=== PATIENT | female | born 1990 | race Caucasian/White ===

== ENCOUNTER 2019-06-21 11:30 | Emergency (ER) | payer BC, OTHER ==
[2019-06-21] MEDS ORDERED: Ondansetron 4 MG/2 ML SDV IVPUSH ONE (11:55)
[2019-06-21] MEDS ORDERED: HYDROmorphone 2 MG/ML Syringe IVPUSH ONE (11:55)
[2019-06-21] MEDS ORDERED: Sodium Chloride 0.9% 1,000 ML IV ONE (11:55)
[2019-06-21 12:38] LABS: BLOOD UREA NITROGEN,BUN 13 mg/dL (7.0-18.0); CARBON DIOXIDE,CO2 27.2 mmol/L (21.0-32.0); CHLORIDE,CL 101 mmol/L (98-107); GLUCOSE RANDOM 93 mg/dL (74-106); LIPASE 114 U/L (73-393); POTASSIUM,K 3.7 mmol/L (3.5-5.1); SODIUM,NA 137 mmol/L (136-145)
[2019-06-21] MEDS ORDERED: Iopamidol 755 MG/ML 200 ML Multipack Bottle IVPUSH STA (13:03)
--- NOTE | 2019-06-21 13:21 | CR ---
Indication: Cough. Technique: PA view of the chest. Comparison: None Findings: The heart is normal in size. The lungs are clear. No infiltrate, pleural effusion, or pneumothorax is identified. Impression: No acute cardiopulmonary process Dictated by Yvonne Meadows MD @ Jun 21 2019 1:19PM Signed by Dr. Yvonne Meadows @ Jun 21 2019 1:20PM
--- NOTE | 2019-06-21 13:42 | CT ---
INDICATION: Right lower quadrant pain. Technique contrast and CT on pelvis 100 mL Isovue-[id number]. COMPARISON: No comparison studies are available Findings: Heart size is normal. No pericardial effusion. No pleural effusion. Lung bases are clear. Acute the liver spleen, pancreas. Cholelithiasis. No abdominal aortic aneurysm. Symmetric enhancement of both kidneys. There is no hydronephrosis. Abundant stool in the colon. No bowel obstruction. The appendix is not identified however there is no inflammatory change. There is no pericecal inflammatory change. Fat containing ventral hernia. No suspicious bony lesions. IMPRESSION: 1. No acute findings in the abdomen or pelvis. Appendix not identified however no pericecal inflammatory change is visualized. Please note that all CT scans at this facility use dose modulation, iterative reconstruction, and/or weight-based dosing when appropriate to reduce radiation dose to as low as reasonably achievable. Dictated by Annamaria He MD @ Jun 21 2019 1:15PM Signed by Dr. Annamaria He @ Jun 21 2019 1:41PM
--- NOTE | 2019-06-21 13:50 | EDM.PDOC ---
ED [facility] GENERAL MEDICAL PROBLEM - General Chief Complaint: Abdominal Pain Stated Complaint: ABDOMINAL PAIN Time Seen by Provider: 06/21/19 11:49 - History of Present Illness INITIAL COMMENTS - FREE TEXT/NARRATIVE: HPI 29-year-old female with history of appendectomy and pelvic cyst presents for evaluation of right lower quadrant nonradiating abdominal discomfort of approximately half day duration that is occurring in the setting of half day of frequent loose watery stools. Patient also endorses 3 days of mild sore throat. No identifiable provoking or relieving factors. Patient is currently on menses. No atypical discharge. LMP ~4 weeks ago. * Character: non-bloody, no mucus, no pus. * Frequency: 5 pack/day. * Duration: one day. * Denies: recent antibiotics, fresh or salt water exposure, recent hospitalization, travel, drinking untreated water, history of c. difficile. * Fever/chills/rigors: denies. * HIV or immunocompromise: denies. M/S/F/SocHx notable for: please see HPI; remainder reviewed with patient and in chart. ROS: Negative constitutional, eye, cardiovascular, pulmonary, GI, , MSK, skin , neurologic, psychiatric, endocrine unless noted in the HPI. Exam HR 98, RR 16, BP 121/84, T 36.4F, SaO2 96% on room air. Gen: Pleasant, non-toxic appearing, resting comfortably. HEENT: NC, AT, PEERL, EOMI, neck supple with full range of movement. Oropharynx visually normal. No palpable lymphadenopathy. Resp: Clear to auscultation bilaterally, normal work of breathing, no accessory muscle usage. Card: Regular rate and rhythm with no murmurs, rubs, or gallops, extremities warm and well perfused. GI: mild diffuse tenderness palpation without rebound or guarding. : No suprapubic tenderness to palpation. MSK: No visible deformities, strength and tone without visually appreciable deficit. Skin: Normal color with no visible lesions. Neuro: alert and oriented 3, no facial asymmetry, vision and hearing WNL. Psych: unusual mood and affect Labs / Imaging (pertinent): WBC 4.66, HB 13.5, sodium 137, potassium 3.7, GGT 177, AST 149, ALT 351, alkaline phosphatase 225, lipase 114. HCG negative. Negative nitrate, negative leukocyte esterase, large occult blood, few bacteria , few epithelial cells. CXR: no acute cardiopulmonary process. CT Abd/Pelvis: no acute findings in the abdomen or pelvis. Appendix not identified however, no pericecal inflammatory change is visualized. Influenza B positive. MDM Previous chart, nursing note, and vitals reviewed. A: 29-year-old female with history of appendectomy and pelvic cyst presents for evaluation of right lower quadrant nonradiating abdominal discomfort of approximately half day duration that is occurring in the setting of half day of frequent loose watery stools. DDx: viral enteritis, viral gastroenteritis, bacterial gastroenteritis, food poisoning, C. Difficile, dehydration, electrolyte abnormalities, septicemia/ bacteremia, DKA, acute appendicitis, inflammatory (Crohns vs ulcerative colitis ), influenza. Evaluation: patient with positive influenza test, no features on history, exam, imaging studies, or labs suggestive of decompensation, superinfection, or sepsis. Imaging of the abdomen obtained due to the history of cyst as well as patient endorsing moderate discomfort on examination. This was unremarkable, given the above evaluation the patient symptoms are believed to be secondary to her influenza be infection. Patient was discharged with home care instructions and return to care precautions. Impression: influenza. Right Lower Abdominal Pain Score (Numeric/FACES): 10 - Related Data Allergies Allergy/AdvReac Type Severity Reaction Status Date / Time No Known Allergies Allergy Verified 06/21/19 11:37 Home Meds: Home Meds Acetaminophen [Tylenol Extra Strength] 325 mg PO Q6H PRN 03/16/15 [History] Sertraline HCl 25 mg PO DAILY 09/16/18 [History] busPIRone [Buspar] 15 mg PO DAILY 09/16/18 [History] Past Medical History - Past Health History Medical/Surgical History: Denies Medical/Surgical History HEENT History: Reports: None Cardiovascular History: Reports: Other (See Below) Other Cardiovascular History: preeclampsia Respiratory History: Reports: Asthma Gastrointestinal History: Reports: None Genitourinary History: Reports: None ADMITTANCE ATTENDANT History: Reports: Other ADMITTANCE ATTENDANT History: First baby born at 29 weeks gestation due to patient having severe preeclampsia Musculoskeletal History: Reports: None Neurological History: Reports: None Psychiatric History: Reports: Anxiety, Depression Endocrine/Metabolic History: Reports: None Hematologic History: Reports: None Immunologic History: Reports: None Oncologic (Cancer) History: Reports: None Dermatologic History: Reports: None - Infectious Disease History Infectious Disease History: Reports: Chicken Pox - Past Surgical History Head Surgeries/Procedures: Reports: None GI Surgical History: Reports: Appendectomy Female Surgical History: Reports: Section Social & Family History - Family History Family Medical History: Noncontributory - Tobacco Use Smoking Status *Q: Never Smoker Second Hand Smoke Exposure: No - Caffeine Use Caffeine Use: Reports: Coffee - Recreational Drug Use Recreational Drug Use: No ED ROS GENERAL - Review of Systems Review Of Systems: See Below ED EXAM, GENERAL - Physical Exam Exam: See Below Course - Vital Signs Last Recorded V/S: Last Vital Signs Temp 36.4 C 06/21/19 11:38 Pulse 71 06/21/19 13:10 Resp 16 06/21/19 11:38 BP 99/69 06/21/19 13:10 Pulse Ox 99 06/21/19 13:10 - Orders/Labs/Meds Labs: Laboratory Tests 06/21/19 06/21/19 06/21/19 Range/Units 11:55 11:55 11:55 WBC 4.66 (4.0-11.0) K/uL RBC 4.53 (4.30-5.90) M/uL Hgb 13.5 (12.0-16.0) g/dL Hct 40.9 (36.0-46.0) % MCV 90.3 (80.0-98.0) fL MCH 29.8 (27.0-32.0) pg MCHC 33.0 (31.0-37.0) g/dL RDW Std Deviation 42.9 (28.0-62.0) fl RDW Coeff of Carlitos 13 (11.0-15.0) % Plt Count 246 (150-400) K/uL MPV 10.10 (7.40-12.00) fL Neut % (Auto) 55.2 (48.0-80.0) % Lymph % (Auto) 31.1 (16.0-40.0) % Douglas % (Auto) 13.3 (0.0-15.0) % Eos % (Auto) 0.2 (0.0-7.0) % Baso % (Auto) 0.2 (0.0-1.5) % Neut # (Auto) 2.6 (1.4-5.7) K/uL Lymph # (Auto) 1.5 (0.6-2.4) K/uL Douglas # (Auto) 0.6 (0.0-0.8) K/uL Eos # (Auto) 0.0 (0.0-0.7) K/uL Baso # (Auto) 0.0 (0.0-0.1) K/uL Nucleated RBC % 0.0 /100WBC Nucleated RBCs # 0 K/uL Sodium (136-145) mmol/L Potassium (3.5-5.1) mmol/L Chloride (98-107) mmol/L Carbon Dioxide (21.0-32.0) mmol/L BUN (7.0-18.0) mg/dL Creatinine (0.6-1.0) mg/dL Est Cr Clr Drug Dosing mL/min Estimated GFR (MDRD) ml/min Glucose (74-106) mg/dL Calcium (8.5-10.1) mg/dL Total Bilirubin (0.2-1.0) mg/dL GGT (5-85) U/L AST (15-37) IU/L ALT (14-63) IU/L Alkaline Phosphatase (46-116) U/L Total Protein (6.4-8.2) g/dL Albumin (3.4-5.0) g/dL Globulin (2.6-4.0) g/dL Albumin/Globulin Ratio (0.9-1.6) Lipase (73-393) U/L Urine Color YELLOW Urine Appearance CLEAR Urine pH 6.0 (5.0-8.0) Ur Specific [place] >= 1.030 (1.001-1.035) Urine Protein NEGATIVE (NEGATIVE) mg/dL Urine Glucose (UA) NEGATIVE (NEGATIVE) mg/dL Urine Ketones NEGATIVE (NEGATIVE) mg/dL Urine Occult Blood LARGE H (NEGATIVE) Urine Nitrite NEGATIVE (NEGATIVE) Urine Bilirubin NEGATIVE (NEGATIVE) Urine Urobilinogen 0.2 (<2.0) EU/dL Ur Leukocyte Esterase NEGATIVE (NEGATIVE) Urine RBC 0-2 (0-2/HPF) Urine WBC 0-1 (0-5/HPF) Ur Epithelial Cells FEW (NONE-FEW) Urine Bacteria FEW (NEGATIVE) Urine HCG, Qual NEGATIVE (NEGATIVE) 06/21/19 Range/Units 11:55 WBC (4.0-11.0) K/uL RBC (4.30-5.90) M/uL Hgb (12.0-16.0) g/dL Hct (36.0-46.0) % MCV (80.0-98.0) fL MCH (27.0-32.0) pg MCHC (31.0-37.0) g/dL RDW Std Deviation (28.0-62.0) fl RDW Coeff of Carlitos (11.0-15.0) % Plt Count (150-400) K/uL MPV (7.40-12.00) fL Neut % (Auto) (48.0-80.0) % Lymph % (Auto) (16.0-40.0) % Douglas % (Auto) (0.0-15.0) % Eos % (Auto) (0.0-7.0) % Baso % (Auto) (0.0-1.5) % Neut # (Auto) (1.4-5.7) K/uL Lymph # (Auto) (0.6-2.4) K/uL Douglas # (Auto) (0.0-0.8) K/uL Eos # (Auto) (0.0-0.7) K/uL Baso # (Auto) (0.0-0.1) K/uL Nucleated RBC % /100WBC Nucleated RBCs # K/uL Sodium 137 (136-145) mmol/L Potassium 3.7 (3.5-5.1) mmol/L Chloride 101 (98-107) mmol/L Carbon Dioxide 27.2 (21.0-32.0) mmol/L BUN 13 (7.0-18.0) mg/dL Creatinine 0.7 (0.6-1.0) mg/dL Est Cr Clr Drug Dosing 112.01 mL/min Estimated GFR (MDRD) > 60.0 ml/min Glucose 93 (74-106) mg/dL Calcium 9.1 (8.5-10.1) mg/dL Total Bilirubin 1.0 (0.2-1.0) mg/dL GGT 177 H (5-85) U/L AST 149 H (15-37) IU/L ALT 351 H (14-63) IU/L Alkaline Phosphatase 225 H (46-116) U/L Total Protein 8.5 H (6.4-8.2) g/dL Albumin 3.9 (3.4-5.0) g/dL Globulin 4.6 H (2.6-4.0) g/dL Albumin/Globulin Ratio 0.9 (0.9-1.6) Lipase 114 (73-393) U/L Urine Color Urine Appearance Urine pH (5.0-8.0) Ur Specific [place] (1.001-1.035) Urine Protein (NEGATIVE) mg/dL Urine Glucose (UA) (NEGATIVE) mg/dL Urine Ketones (NEGATIVE) mg/dL Urine Occult Blood (NEGATIVE) Urine Nitrite (NEGATIVE) Urine Bilirubin (NEGATIVE) Urine Urobilinogen (<2.0) EU/dL Ur Leukocyte Esterase (NEGATIVE) Urine RBC (0-2/HPF) Urine WBC (0-5/HPF) Ur Epithelial Cells (NONE-FEW) Urine Bacteria (NEGATIVE) Urine HCG, Qual (NEGATIVE) Meds: Medications Discontinued Medications Generic Name Dose Route Start Last Admin Trade Name Freq PRN Reason Stop Dose Admin Hydromorphone HCl 0.5 mg 06/21/19 11:55 06/21/19 12:15 Dilaudid IVPUSH 06/21/19 11:56 0.5 mg ONETIME ONE Administration Sodium Chloride 1,000 mls @ 1,000 mls/hr 06/21/19 11:55 06/21/19 12:13 Normal Saline IV 06/21/19 12:54 1,000 mls/hr .Bolus ONE Administration Iopamidol 100 ml 06/21/19 13:03 06/21/19 13:04 Isovue Multipack-370 (76%) IVPUSH 06/21/19 13:04 100 ml ONETIME STA Administration Ondansetron HCl 4 mg 06/21/19 11:55 06/21/19 12:14 Zofran IVPUSH 06/21/19 11:56 4 mg ONETIME ONE Administration Departure - Departure Time of Disposition: 13:50 Disposition: Home, Self-Care 01 Clinical Impression: Influenza - Discharge Information Referrals: PCP,None [Primary Care Provider] - Additional Instructions: You were in seen in the [facility] Emergency Department for evaluation of abdominal pain, malaise, cough, and sore throat, you were found to have influenza B. You may take ibuprofen and acetaminophen instructed below for treatment of discomfort. Please read and follow all of the instructions below. Please follow up with your primary care physician as needed. When calling for follow-up care, please make the office aware that this follow-up is from your recent emergency room visit. If for any reason you are refused follow-up, please contact the [facility] Emergency Department at and asked to speak to the emergency department charge nurse. Your care today was limited to identifying and treating emergent medical problems only. Many people have subtle differences in their test results that require follow up with their outpatient physician(s) to correctly determine if this represents a normal variation or concerning abnormality with respect to your specific health. The care given to you today was limited to identifying and treating emergent medical problems - you need to request a copy of all of your medical records from today's visit and follow up with your outpatient physician(s) to review both today's visit and your overall health. If you have any new symptoms or if you are at all concerned about your health please return immediately to the emergency department. What is the flu? The flu is a viral infection that can cause fever, cough, body aches, and other symptoms. There are different forms of the flu, including the "seasonal" flu, the [id number] pandemic H1N1 flu (also called the "swine" flu), and the bird flu. All forms of the flu are caused by viruses. The medical term for the flu is "influenza." All forms of the flu can cause fevers, cough, headaches or body aches, and a sore throat or runny nose. Return to the emergency department if you have any of the following: * Have trouble breathing or are short of breath * Feel pain or pressure in your chest or belly * Get suddenly dizzy * Feel confused * Have severe vomiting * If you are breathing fast, have trouble breathing, are if you turn blue or purple * If you are excessively fatigued you have difficulty waking up * If you start getting better from the flu but then have worsening sickness, this could represent a secondary bacterial infection. * If you develop a fever, rash, neck stiffness, headaches, or bright lights bother you. * If you are otherwise concerned about your health * If you decide to go to a walk-in clinic or a hospital because of the flu, tell someone right away why you are there. The staff might ask you to wear a mask or to wait someplace where you are less likely to spread your infection. Home Care The primary treatment for influenza is supportive care. Please stay well- hydrated, rest, consume a light diet, and - if you do not have any allergies or other reasons not to - you may take ibuprofen and acetaminophen as directed on the bottle for symptomatic relief from your fevers and aches. Do not go to work or school until your fever has been gone for at least 24 hours, without a taking fever-reducing medicine, such as acetaminophen or ibuprofen. If you work in a healthcare setting taking care of patients, you might need to stay home longer if you are still coughing. Also, always cover your mouth and nose with the inside of your elbow when you cough or sneeze. You make take over the counter Acetaminophen (Tylenol) and Ibuprofen (Motrin or Aleve) as directed below for relief of pain. Take 600 mg of ibuprofen (three 200 mg tablets) with a glass of water every 6-8 hours as needed for pain or fever. Do not take if you have ulcers, GI bleeding, are , or are allergic to ibuprofen. Take 1,000 mg of acetaminophen (two 500 mg tablets) with a glass of water every 6-8 hours as needed for pain. Do not take if you are allergic to acetaminophen. If you have liver disease, please reduce your dose to a maximum of 2,000 mg per day. You can take these medications at the same time or on separate schedules. Do not take for more than 10 days. Do not take with alcohol or other acetaminophen containing medications. This medication may cause a mildly upset stomach, if so take it with a small snack. Stop taking it if you have persistent abdominal pain, heartburn, or any stomach pain. Do not take this medication if you have known ulcers. Please read the warnings at the end of this document regarding these medications. IBUPROFEN WARNING: This drug may infrequently cause serious (rarely fatal) bleeding from the stomach or intestines. Also, related drugs rarely have caused blood clots to form, resulting in heart attacks and strokes. This medication might also rarely cause similar problems. Talk to your doctor or pharmacist about the benefits and risks of treatment, as well as other possible medication choices. If you notice any of the following rare but very serious side effects, stop taking ibuprofen and seek immediate medical attention: black stools, persistent stomach/abdominal pain, vomit that looks like coffee grounds, chest pain, weakness on one side of the body, sudden vision changes, slurred speech. IBUPROFEN SIDE EFFECTS: Upset stomach, nausea, vomiting, heartburn, headache, diarrhea, constipation, drowsiness, and dizziness may occur. If any of these effects persist or worsen, notify your doctor or pharmacist promptly. If your doctor has directed you to use this medication, remember that he or she has judged that the benefit to you is greater than the risk of side effects. Many people using this medication do not have serious side effects. Tell your doctor immediately if any of these serious side effects occur: stomach pain, swelling of the hands or feet, sudden or unexplained weight gain, ringing in the ears ( tinnitus). Tell your doctor immediately if any of these unlikely but serious side effects occur: vision changes, rapid or pounding heartbeat, easy bruising or bleeding, difficult/painful swallowing. Tell your doctor immediately if any of these highly unlikely but very serious side effects occur: change in amount of urine, severe headache, very stiff neck, mental/mood changes, persistent sore throat or fever. This drug may rarely cause serious (possibly fatal) liver disease. If you notice any of the following highly unlikely but very serious side effects, stop taking ibuprofen and consult your doctor or pharmacist immediately: yellowing eyes and skin, dark urine, unusual/extreme tiredness. An allergic reaction to this drug is unlikely, but seek immediate medical attention if it occurs. Symptoms of an allergic reaction include: rash, itching/ swelling (especially of the face/tongue/throat), severe dizziness, trouble breathing. This is not a complete list of possible side effects. ACETAMINOPHEN SIDE EFFECTS: This drug usually has no side effects. If you do not have liver problems, the maximum dose of acetaminophen for adults is 4 grams per day (4000 milligrams). Taking more than the maximum daily amount may cause serious (possibly fatal) liver damage. Get medical help right away if you have any of the following symptoms of liver damage: persistent nausea/vomiting, extreme tiredness, stomach/abdominal pain, yellowing eyes/skin, dark urine. If you have liver problems, consult your doctor or pharmacist for a safe dosage of this medication. A very serious allergic reaction to this drug is rare. However , get medical help right away if you notice any symptoms of a serious allergic reaction, including: rash, itching/swelling (especially of the face/tongue/ throat), severe dizziness, trouble breathing. This is not a complete list of possible side effects. If you notice other effects not listed above, contact your doctor or pharmacist. DRUG INTERACTIONS: Your healthcare professionals (e.g., doctor or pharmacist) may already be aware of any possible drug interactions and may be monitoring you for it. Do not start, stop or change the dosage of any medicine before checking with them first. This drug should not be used with the following medications because very serious interactions may occur: cidofovir, ketorolac. If you are currently using any of these medications listed above, tell your doctor or pharmacist before starting ibuprofen. Before using this medication, tell your doctor or pharmacist of all prescription and nonprescription/herbal products you may use, especially of: anti-platelet drugs (e.g., cilostazol, clopidogrel), oral bisphosphonates (e.g., alendronate), other medications for arthritis (e.g., aspirin, methotrexate), "blood thinners" (e.g., enoxaparin, heparin, warfarin), corticosteroids (e.g., prednisone), cyclosporine, desmopressin, high blood pressure drugs (including JOSELITO inhibitors such as captopril, angiotensin II receptor antagonists such as losartan, and beta- blockers such as metoprolol), lithium, pemetrexed, "water pills" (diuretics such as furosemide, hydrochlorothiazide, triamterene). Check all prescription and nonprescription medicine labels carefully for other pain/fever drugs ( NSAIDs such as aspirin, celecoxib, naproxen). These drugs are similar to ibuprofen, so taking one of these drugs while also taking ibuprofen may increase your risk of side effects. Consult your doctor or pharmacist for more details. However, if your doctor has prescribed low doses of aspirin to prevent heart attack or stroke (usually at dosages of 81-325 milligrams a day), you should continue to take the aspirin. Daily use of ibuprofen may decrease aspirin 's ability to prevent heart attack/stroke. Talk to your doctor about using a different medication (e.g., acetaminophen) to treat pain/fever. If you must take ibuprofen, talk to your doctor about possibly taking immediate-release aspirin (not enteric-coated) while also taking the ibuprofen dose apart from your aspirin dose. Do not increase your daily dose of aspirin or change the way you take aspirin/other medications without your doctor's approval. This document does not contain all possible interactions. Therefore, before using this product, tell your doctor or pharmacist of all the products you use. Keep a list of all your medications with you, and share the list with your doctor and pharmacist. Prescriptions: If you are uninsured or have financial difficulties with filling your prescription(s), you may consider using a free pharmacy discount service such as [employer] ([employer]) or [employer] ([employer]). These services allow you to search for a medication on your phone (or computer) and obtain a coupon that usually has a significant discount from the list mckeon at a pharmacy. Your physician as well as [facility] does not have a financial relationship with either of these services. You may also wish to speak with your physician to determine if lower cost prescriptions are possible. Obtaining primary care: 1. [facility] provides pediatrics (children), family medicine (children, adults, and some obstetrical care), and internal medicine (adults). Further specialty care is also available. Same day appointments are available. They may be contacted at [phone] and are open Saturday through Saturday 8 AM to 5 PM. The [facility] are located at [facility], [address] [place] [address]. 2. [facility] offers family medicine, internal medicine, womens health, and further specialty care. [facility] may be contacted at [phone]. [facility] is located at [address] [place] [address]. 3. If you have health insurance, please also contact your insurer for a list of accepting providers under your policy, you may contact these providers for further health care. Occupational health: Work related injuries may consider following up with [facility], . Occupational health services are located at [address] [place] [id number] and are open Saturday through Saturday from 7: 30 am to 5:00 pm. Obstetrical and Gynecological Care: [facility], , Saturday through Saturday 8 AM to 5 PM. [address], [place] [address]. Eyecare: If you have an eye injury you should follow up with your salvager helper or with [facility], at [phone] or [phone] , they are located at [address] [place] [id number]. Sepsis Event Note - Evaluation Sepsis Screening Result: No Definite Risk - Focused Exam Vital Signs: Vital Signs Temp Pulse Resp BP Pulse Ox 06/21/19 13:10 71 99/69 99 06/21/19 11:38 36.4 C 98 16 121/84 96 Date Exam was Performed: 06/21/19 Time Exam was Performed: 13:49
[2019-06-21 14:17] VITALS: BP 108/72; PULSE 77
== END 2019-06-21 14:18 | disposition home or self-care (01) ==
LOC: MW.ED 11:30
DX: J11.1 Influenza due to unidentified influenza virus with other respiratory manifestations (principal); J45.909 Unspecified asthma, uncomplicated; F41.9 Anxiety disorder, unspecified; F32.9 Major depressive disorder, single episode, unspecified; Z79.899 Other long term (current) drug therapy
CPT/HCPCS: 36415; 71045; 74177; 80053; 81001; 81025; 82977; 83690; 85025; 87804; 96361; 96374; 96375; 99284; J1170; J2405; J7030; Q9967; 99283

== ENCOUNTER 2019-07-15 06:32 | Day surgery (SDC) | payer OTHER ==
[~2019-07-15 06:32] MED LIST: Lactated Ringers 1,000 ML IV SCH; ceFAZolin 2 GM in Premix Bag 1 BAG IV ONE
[2019-07-15] MEDS ORDERED: Scopolamine 1.5 MG Transdermal Patch TRDERM PRN (06:58)
--- NOTE | 2019-07-15 07:02 | PCM.PREANE ---
Preanesthetic Assessment - Anesthesia/Transfusion/Family Hx Anesthesia History: Prior Anesthesia Without Reaction Family History of Anesthesia Reaction: No Transfusion History: No Prior Transfusion(s) Intubation History: Unknown - Review of Systems General: No Symptoms Pulmonary: No Symptoms Cardiovascular: No Symptoms Gastrointestinal: Abdominal Pain Neurological: No Symptoms Other: Reports: None - Physical Assessment Height: 5 ft 6 in Weight: 80.286 kg ASA Class: 2 Mental Status: Alert & Oriented x3 Airway Class: Mallampati = 2 Dentition: Reports: Normal Dentition Thyro-Mental Finger Breadths: 3 Mouth Opening Finger Breadths: 3 ROM/Head Extension: Full Lungs: Clear to Auscultation, Normal Respiratory Effort Cardiovascular: Regular Rate, Regular Rhythm - Allergies Allergies/Adverse Reactions: Allergies Allergy/AdvReac Type Severity Reaction Status Date / Time No Known Allergies Allergy Verified 07/09/19 08:15 - Blood Blood Available: No - Anesthesia Plan Pre-Op Medication Ordered: None - Acknowledgements Anesthesia Type Planned: General Anesthesia Pt an Appropriate Candidate for the Planned Anesthesia: Yes Alternatives and Risks of Anesthesia Discussed w Pt/Guardian: Yes Pt/Guardian Understands and Agrees with Anesthesia Plan: Yes PreAnesthesia Questionnaire - Past Health History Medical/Surgical History: Denies Medical/Surgical History HEENT History: Reports: None Cardiovascular History: Reports: Other (See Below) Other Cardiovascular History: HTN only with , h/o increased cholesterol Respiratory History: Reports: Asthma Other Respiratory History: asthma in the past Gastrointestinal History: Reports: Cholelithiasis Genitourinary History: Reports: None [employer] History: Reports: Musculoskeletal History: Reports: Fracture Other Musculoskeletal History: hx fx foot as a child Neurological History: Reports: None Psychiatric History: Reports: Anxiety, Depression Endocrine/Metabolic History: Reports: None Hematologic History: Reports: None Immunologic History: Reports: None Oncologic (Cancer) History: Reports: None Dermatologic History: Reports: None - Infectious Disease History Infectious Disease History: Reports: Chicken Pox - Past Surgical History Head Surgeries/Procedures: Reports: None HEENT Surgical History: Reports: None Cardiovascular Surgical History: Reports: None Respiratory Surgical History: Reports: None GI Surgical History: Reports: Appendectomy Female Surgical History: Reports: Section (x3) Endocrine Surgical History: Reports: None Neurological Surgical History: Reports: None Musculoskeletal Surgical History: Reports: None Oncologic Surgical History: Reports: None Dermatological Surgical History: Reports: None - SUBSTANCE USE Smoking Status *Q: Never Smoker Recreational Drug Use History: No - HOME MEDS Home Medications: Home Meds Acetaminophen [Tylenol Extra Strength] 2 tab PO Q6H PRN 03/16/15 [History] Sertraline HCl 25 mg PO BEDTIME 09/16/18 [History] busPIRone [Buspar] 15 mg PO BEDTIME 09/16/18 [History] - CURRENT (IN HOUSE) MEDS Current Meds: Current Medications Lactated Ringer's (Ringers, Lactated) 1,000 mls @ 125 mls/hr IV ASDIRECTED SYLWIA Scopolamine (Transderm-Scop) 1.5 mg TRDERM Q72H PRN PRN Reason: Nausea Discontinued Medications Cefazolin Sodium/Dextrose 2 gm (/ Premix) 50 mls @ 100 mls/hr IV ONETIME ONE Stop: 07/15/19 05:29
[2019-07-15 07:22] LABS: BLOOD UREA NITROGEN,BUN 16 mg/dL (7.0-18.0); CARBON DIOXIDE,CO2 28.1 mmol/L (21.0-32.0); CHLORIDE,CL 104 mmol/L (98-107); GLUCOSE RANDOM 94 mg/dL (74-106); LIPASE 166 U/L (73-393); POTASSIUM,K 3.3 mmol/L (3.5-5.1); SODIUM,NA 140 mmol/L (136-145)
[2019-07-15] MEDS ORDERED: Propofol 200 MG/20 ML SDV ONE (07:26)
[2019-07-15] MEDS ORDERED: Midazolam 1 MG/ML 2 ML SDV ONE (07:26)
[2019-07-15] MEDS ORDERED: Ondansetron 4 MG/2 ML SDV ONE ×2 (07:26→09:27)
[2019-07-15] MEDS ORDERED: fentaNYL 250 MCG/5 ML SDV ONE (07:27)
[2019-07-15] MEDS ORDERED: ceFAZolin/Dextrose,Iso-Osmotic 2 GM/50 ML Duplex Bag IV ONE (07:57)
[2019-07-15] MEDS ORDERED: Glycopyrrolate 0.2 MG/ML SDV ONE (08:29)
[2019-07-15] MEDS ORDERED: Sugammadex Sodium 200 MG/2 ML VIAL ONE (09:14)
[2019-07-15] MEDS ORDERED: Ketorolac 30 MG/ML SDV ONE (09:19)
[2019-07-15] MEDS ORDERED: Acetaminophen 1,000 MG in Premix Bag 1 BAG IV ONE (09:36)
[2019-07-15] MEDS ORDERED: HYDROmorphone 2 MG/ML Syringe IVPUSH ONE (09:56)
[2019-07-15] MEDS: HYDROmorphone 2 MG/ML Syringe IVPUSH ONE ×2 (10:51→11:02)
--- NOTE | 2019-07-15 11:19 | PCM.POSTAN ---
POST ANESTHESIA ASSESSMENT - MENTAL STATUS Mental Status: Alert, Oriented - VITAL SIGNS Vital Signs: Last Vital Signs Temp 36.4 C 07/15/19 10:18 Pulse 73 07/15/19 11:09 Resp 10 L 07/15/19 11:09 BP 101/56 L 07/15/19 11:09 Pulse Ox 95 07/15/19 11:09 - RESPIRATORY Respiratory Status: Respiratory Rate WNL, Airway Patent, O2 Saturation Stable - CARDIOVASCULAR CV Status: Pulse Rate WNL, Blood Pressure Stable - GASTROINTESTINAL GI Status: No Symptoms - PAIN Pain Score: 2 - POST OP HYDRATION Hydration Status: Adequate & Stable - OBSERVATIONS Free Text/Narrative:: No anesthesia problems
--- NOTE | 2019-07-15 11:23 | PCM.OPNOTE ---
- General Post-Op/Procedure Note Date of Surgery/Procedure: 07/15/19 Operative Procedure(s): 1) lap yasmin. 2) LAKESHA. 3) ventral hernia repair, primarily, no mesh used Findings: 1) gb was yellow and green, cw cholecystitis; severe adherence from surrounding organs, cw chronic in situation; many large 10 mm gall stones 2) adherence from prior surgery 3) 3 ventral hernia, incarcerated 15 mm, and 2 smaller ones, like 5 mm superior to it, repaired primarily, no mesh used [id number] Pre Op Diagnosis: acute and chronic cholecystitis and incarcerated ventral hernia Post-Op Diagnosis: Same Anesthesia Technique: General ET Tube Primary Surgeon: Filipe Bui Complications: None Condition: Good Free Text/Narrative:: Intake & Output 07/14/19 07/15/19 07/15/19 22:59 06:59 14:59 Intake Total 1700 Output Total 150 Balance 1550
[2019-07-15] MEDS ORDERED: Acetaminophen/oxyCODONE 325-5 MG Tab PO PRN (11:25)
[2019-07-15] MEDS: fentaNYL 100 MCG/2 ML SDV IVPUSH PRN ×3 (11:25→13:00)
[2019-07-15] MEDS ORDERED: Ondansetron 4 MG/2 ML SDV IVPUSH PRN (11:30)
[2019-07-15] MEDS ORDERED: diphenhydrAMINE 50 MG/ML SDV IVPUSH ONE (11:48)
[2019-07-15] MEDS ORDERED: diphenhydrAMINE 50 MG/ML SDV ONE (11:56)
--- NOTE | 2019-07-15 14:54 | PCM48HPAN ---
Post Anesthesia Note - EVALUATION WITHIN 48HRS OF ANESTHETIC Vital Signs in Normal Range: Yes Patient Participated in Evaluation: Yes Respiratory Function Stable: Yes Airway Patent: Yes Cardiovascular Function Stable: Yes Hydration Status Stable: Yes Pain Control Satisfactory: Yes Nausea and Vomiting Control Satisfactory: Yes Mental Status Recovered: Yes Vital Signs: Last Vital Signs Temp 36.4 C 07/15/19 10:18 Pulse 69 07/15/19 11:45 Resp 15 07/15/19 11:45 BP 94/56 L 07/15/19 11:45 Pulse Ox 99 07/15/19 11:45
[2019-07-15 15:45] VITALS: BP 103/59; PULSE 83
--- NOTE | 2019-07-15 16:32 | OR ---
SURGEON: Filipe Bui MD DATE OF PROCEDURE: 07/15/2019 PREOPERATIVE DIAGNOSES: Acute on chronic cholecystitis and incarcerated ventral hernia. PROCEDURE PROPOSED: Laparoscopic cholecystectomy. PROCEDURES PERFORMED: 1. Laparoscopic cholecystectomy. 2. Lysis of adhesion. 3. Ventral hernia repair, primary, no mesh used. PRIMARY SURGEON: Filipe Bui MD. COMPLICATIONS: None. FINDINGS: 1. Gallbladder was yellow and green, consistent with cholecystitis. Severe adherence from surrounding organs. No gallbladder wall thickening, consistent with chronic in situation. Many large 10 mm gallstones, at least six of them. 2. Adherence from prior surgery. 3. Three ventral hernias, one large one, incarcerated, about 15 mm. Two more above it, in the midline position, about the size of 5 mm. All coalesces into one hernia and repaired primary, no mesh used. PROCEDURE NOTE: The patient was taken to the operating room and placed in the supine position. After the intubation of general endotracheal anesthesia, the patient's abdomen was prepped and draped in the usual sterile fashion. Using BioCeeview, a 12 mm trocar was placed supraumbilically and then followed with pneumoperitoneum. A 5 mm trocar was placed in the epigastrium and two 5 mm trocars placed in the right upper quadrant. The placement of the last three trocars was done under direct video supervision. Upon gaining entrance to the abdominal cavity, an extensive examination was then performed. The gallbladder was located and identified and retracted to the dome of the liver at the triangle of Calot. The cystic duct was clipped three more times and then using the endoscopic clip, was transected with placement of the endoscopic clip and transection was performed with care, ensuring the posterior prong of the instruments were clearly visualized prior to exercising the procedure. The gallbladder was dissected using electrocautery out of the liver bed and then removed using endoscopic bag through the umbilical site. The gallbladder was removed en bloc and there was no bile spillage and this was then followed with extensive irrigation until the bile was clear from blood and bile. The trocars were then removed under direct video supervision. The 12 mm umbilical site was then closed with deep stitches using 0 Vicryl followed with proximal stitches using 3-0 Vicryl and Dermabond. The other three trocar sites were closed with 3-0 Vicryl followed with approximation of skin with Dermabond. The patient was then awakened and extubated and transferred to the recovery room in hemodynamically stable condition. At the conclusion of the surgery, before closing the abdominal wound, instrument count and sponge count were done and were correct. The patient tolerated the procedure well and there were no intraoperative complications. Dr. Bui was present through the whole procedure. Just before surgery, a timeout was called. The patient was identified and procedure identified and procedure started. Intraoperative findings as dictated above. The patient on the day of the surgery still had very mildly elevated liver function tests, normal is 80, and the patient's number is 120. TBili is normal. Considering the fact that the patient is only mildly elevated and at the same time x-ray is not available, we will follow her clinically and repeat blood work, and if continued to be elevated, we will get MRCP in the postop course. When the gallbladder is removed and the trocars were removed, attention now turned to the ventral hernia. A vertical incision was made and was carefully dissected around the umbilicus. The hernia sac was located, which consisted of omentum, and on top of this on examination, the patient had two more hernias above the incarcerated ventral hernia at the umbilicus. Two more were small, but they were there and also obvious by looking at the CAT scan. They were very small, about 5 mm, on the midline, superior to the large umbilical one. Bringing all three of them together into one large hernia, measuring about 4 cm. Since this is after gallbladder surgery: 1. It is not a good idea to put a mesh. 2. The real hernia is about 1.5 cm, although there are two small ones above it and decided not to use mesh, anyway it not applicable because of gallbladder surgery. So the boundary was delineated and then using 0 Ethibond the fascial defect was repaired and followed with 3-0 Vicryl to recreate the umbilicus and the skin was approximated by use of skin vikram. So the other three trocars were also approximated by use of skin vikram and followed by appropriate dressing. The patient then was awakened, extubated, and transferred to Recovery in hemodynamically stable condition. The patient tolerated the procedure well. There were no intraoperative complications. Dr. Bui was present through the whole procedure. SHAN / MARY /[id number]
== END 2019-07-15 14:50 | disposition home or self-care (01) ==
LOC: MW.SDS 06:32
PROVIDERS: ATTEND Surgery
DX: K80.10 Calculus of gallbladder with chronic cholecystitis without obstruction (principal); K43.6 Other and unspecified ventral hernia with obstruction, without gangrene; E78.00 Pure hypercholesterolemia, unspecified; F41.9 Anxiety disorder, unspecified; F32.9 Major depressive disorder, single episode, unspecified; J45.909 Unspecified asthma, uncomplicated; Z90.49 Acquired absence of other specified parts of digestive tract; Z79.899 Other long term (current) drug therapy
CPT/HCPCS: 36415; 80053; 81025; 82150; 83690; 85025; A9270-GY; J0131; J0690; J1170; J1200; J1885; J2250; J2405; J2704; J3010; J3490; J7120

== ENCOUNTER 2019-07-18 12:20 | Emergency (ER) | payer OTHER ==
--- NOTE | 2019-07-18 12:33 | EDM.PDOC ---
ED HPI GENERAL MEDICAL PROBLEM - General Chief Complaint: General Stated Complaint: BLEEDING Time Seen by Provider: 07/18/19 12:32 Source of Information: Reports: Patient - History of Present Illness INITIAL COMMENTS - FREE TEXT/NARRATIVE: HISTORY AND PHYSICAL: History of present illness: [] Review of systems: As per history of present illness and below otherwise all systems reviewed and negative. Past medical history: As per history of present illness and as reviewed below otherwise noncontributory. Surgical history: As per history of present illness and as reviewed below otherwise noncontributory. Social history: No reported history of drug or alcohol abuse. Family history: As per history of present illness and as reviewed below otherwise noncontributory. Physical exam: HEENT: Atraumatic, normocephalic, pupils reactive, negative for conjunctival pallor or scleral icterus, mucous membranes moist, throat clear, neck supple, nontender, trachea midline. Lungs: Clear to auscultation, breath sounds equal bilaterally, chest nontender. Heart: S1S2, regular, negative for clicks, rubs, or JVD. Abdomen: Soft, nondistended, nontender. Negative for masses or hepatosplenomegaly. Negative for costovertebral tenderness. Pelvis: Stable nontender. Genitourinary: Deferred. Rectal: Deferred. Extremities: Atraumatic, negative for cords or calf pain. Neurovascular unremarkable. Neuro: Awake, alert, oriented. Cranial nerves II through XII unremarkable. Cerebellum unremarkable. Motor and sensory unremarkable throughout. Exam nonfocal. Diagnostics: [] Therapeutics: [] Impression: [] Definitive disposition and diagnosis as appropriate pending reevaluation and review of above. - Related Data Allergies Allergy/AdvReac Type Severity Reaction Status Date / Time No Known Allergies Allergy Verified 07/09/19 08:15 Home Meds: Home Meds Acetaminophen [Tylenol Extra Strength] 2 tab PO Q6H PRN 03/16/15 [History] Sertraline HCl 25 mg PO BEDTIME 09/16/18 [History] busPIRone [Buspar] 15 mg PO BEDTIME 09/16/18 [History] Past Medical History - Past Health History Medical/Surgical History: Denies Medical/Surgical History HEENT History: Reports: None Cardiovascular History: Reports: Other (See Below) Other Cardiovascular History: HTN only with , h/o increased cholesterol Respiratory History: Reports: Asthma Other Respiratory History: asthma in the past Gastrointestinal History: Reports: Cholelithiasis Genitourinary History: Reports: None [employer]ICER History: Reports: Musculoskeletal History: Reports: Fracture Other Musculoskeletal History: hx fx foot as a child Neurological History: Reports: None Psychiatric History: Reports: Anxiety, Depression Endocrine/Metabolic History: Reports: None Hematologic History: Reports: None Immunologic History: Reports: None Oncologic (Cancer) History: Reports: None Dermatologic History: Reports: None - Infectious Disease History Infectious Disease History: Reports: Chicken Pox - Past Surgical History Head Surgeries/Procedures: Reports: None HEENT Surgical History: Reports: None Cardiovascular Surgical History: Reports: None Respiratory Surgical History: Reports: None GI Surgical History: Reports: Appendectomy Female Surgical History: Reports: Section Endocrine Surgical History: Reports: None Neurological Surgical History: Reports: None Musculoskeletal Surgical History: Reports: None Oncologic Surgical History: Reports: None Dermatological Surgical History: Reports: None Social & Family History - Family History Family Medical History: Noncontributory - Caffeine Use Caffeine Use: Reports: Coffee Departure - Discharge Information Referrals: PCP,None [Primary Care Provider] -
[2019-07-18 13:26] LABS: BLOOD UREA NITROGEN,BUN 11 mg/dL (7.0-18.0); CARBON DIOXIDE,CO2 29.2 mmol/L (21.0-32.0); CHLORIDE,CL 103 mmol/L (98-107); GLUCOSE RANDOM 91 mg/dL (74-106); POTASSIUM,K 3.3 mmol/L (3.5-5.1); SODIUM,NA 140 mmol/L (136-145)
--- NOTE | 2019-07-18 13:51 | EDM.PDOC ---
ED HPI GENERAL MEDICAL PROBLEM - General Chief Complaint: General Stated Complaint: BLEEDING Time Seen by Provider: 07/18/19 12:32 Source of Information: Reports: Patient History Limitations: Reports: No Limitations - History of Present Illness INITIAL COMMENTS - FREE TEXT/NARRATIVE: HISTORY AND PHYSICAL: History of present illness: Patient is a 29-year-old female who presents to the ED today with concern of her incision following cholecystectomy and umbilical hernia repair that was done on Saturday. Patient states she did speak to Dr. Bui who instructed her to come to the ED to be evaluated. Dr. Bui did perform the surgery. Patient states that she has felt okay but today noticed that the incision around her umbilical was bleeding more than it had been. Patient denies any other symptoms or concerns. Patient denies fever, chills, chest pain, shortness of breath, or cough. Denies headache, neck stiff ness, change in vision, syncope, or near syncope. Denies nausea, vomiting, abdominal pain, diarrhea, constipation, or dysuria. Has not noted any blood in urine or stool. Patient has been eating and drinking appropriately. Review of systems: As per history of present illness and below otherwise all systems reviewed and negative. Past medical history: As per history of present illness and as reviewed below otherwise noncontributory. Surgical history: As per history of present illness and as reviewed below otherwise noncontributory. Social history: See social history for further information Family history: As per history of present illness and as reviewed below otherwise noncontributory. Physical exam: General: Patient is alert, oriented, and in no acute distress. Patient sitting comfortably on exam table. HEENT: Atraumatic, normocephalic, pupils equal and reactive bilaterally, negative for conjunctival pallor or scleral icterus, mucous membranes moist, TMs normal bilaterally, throat clear, neck supple, nontender, trachea midline. No drooling or trismus noted. No meningeal signs. No hot potato voice noted. Lungs: Clear to auscultation, breath sounds equal bilaterally, chest nontender. Heart: S1S2, regular rate and rhythm without overt murmur Abdomen: Incisions consistent with recent surgical history. The umbilical incision does have a small amount of bright red fluid pooled in the umbilicus. Soft, nondistended, mildly tender. Negative for masses or hepatosplenomegaly. Negative for costovertebral tenderness. Pelvis: Stable nontender. Genitourinary: Deferred. Rectal: Deferred. Skin: Intact, warm, dry. No lesions or rashes noted. Extremities: Atraumatic, negative for cords or calf pain. Neurovascular unremarkable. Neuro: Awake, alert, oriented. Cranial nerves II through XII unremarkable. Cerebellum unremarkable. Motor and sensory unremarkable throughout. Exam nonfocal. Notes: Dr. Bui, general surgery, consulted on patient has come personally seen to evaluate the patient in the ED. See his official consult note for further treatment and disposition. Voices understanding and is agreeable to plan of care. Denies any further questions or concerns at this time. Diagnostics: CBC, CMP Therapeutics: None Prescription: None Impression: Postoperative bleeding from incision Plan: 1. Follow-up with Dr. Bui on Saturday as scheduled and as discussed. 2. Return to the ED as needed and as discussed. Definitive disposition and diagnosis as appropriate pending reevaluation and review of above. Abdomen Pain Score (Numeric/FACES): 9 - Related Data Allergies Allergy/AdvReac Type Severity Reaction Status Date / Time No Known Allergies Allergy Verified 07/18/19 12:37 Home Meds: Home Meds Acetaminophen [Tylenol Extra Strength] 2 tab PO Q6H PRN 03/16/15 [History] Sertraline HCl 25 mg PO BEDTIME 09/16/18 [History] busPIRone [Buspar] 15 mg PO BEDTIME 09/16/18 [History] Hydrocodone/Acetaminophen [Hydrocodon-Acetaminophen 5-325] 1 tab PO Q6HR PRN [History] Past Medical History - Past Health History Medical/Surgical History: Denies Medical/Surgical History HEENT History: Reports: None Cardiovascular History: Reports: Other (See Below) Other Cardiovascular History: HTN only with , h/o increased cholesterol Respiratory History: Reports: Asthma Other Respiratory History: asthma in the past Gastrointestinal History: Reports: Cholelithiasis Genitourinary History: Reports: None 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: Musculoskeletal History: Reports: Fracture Other Musculoskeletal History: hx fx foot as a child Neurological History: Reports: None Psychiatric History: Reports: Anxiety, Depression Endocrine/Metabolic History: Reports: None Hematologic History: Reports: None Immunologic History: Reports: None Oncologic (Cancer) History: Reports: None Dermatologic History: Reports: None - Infectious Disease History Infectious Disease History: Reports: Chicken Pox - Past Surgical History Head Surgeries/Procedures: Reports: None HEENT Surgical History: Reports: None Cardiovascular Surgical History: Reports: None Respiratory Surgical History: Reports: None GI Surgical History: Reports: Appendectomy Female Surgical History: Reports: Section Endocrine Surgical History: Reports: None Neurological Surgical History: Reports: None Musculoskeletal Surgical History: Reports: None Oncologic Surgical History: Reports: None Dermatological Surgical History: Reports: None Social & Family History - Family History Family Medical History: Noncontributory - Tobacco Use Smoking Status *Q: Never Smoker Second Hand Smoke Exposure: No - Caffeine Use Caffeine Use: Reports: None - Recreational Drug Use Recreational Drug Use: No ED ROS GENERAL - Review of Systems Review Of Systems: Comprehensive ROS is negative, except as noted in HPI. ED EXAM, GENERAL - Physical Exam Exam: See Below (see dictation) Free Text/Narrative:: HISTORY AND PHYSICAL: History of present illness: [] Review of systems: As per history of present illness and below otherwise all systems reviewed and negative. Past medical history: As per history of present illness and as reviewed below otherwise noncontributory. Surgical history: As per history of present illness and as reviewed below otherwise noncontributory. Social history: No reported history of drug or alcohol abuse. Family history: As per history of present illness and as reviewed below otherwise noncontributory. Physical exam: HEENT: Atraumatic, normocephalic, pupils reactive, negative for conjunctival pallor or scleral icterus, mucous membranes moist, throat clear, neck supple, nontender, trachea midline. Lungs: Clear to auscultation, breath sounds equal bilaterally, chest nontender. Heart: S1S2, regular, negative for clicks, rubs, or JVD. Abdomen: Soft, nondistended, nontender. Negative for masses or hepatosplenomegaly. Negative for costovertebral tenderness. Pelvis: Stable nontender. Genitourinary: Deferred. Rectal: Deferred. Extremities: Atraumatic, negative for cords or calf pain. Neurovascular unremarkable. Neuro: Awake, alert, oriented. Cranial nerves II through XII unremarkable. Cerebellum unremarkable. Motor and sensory unremarkable throughout. Exam nonfocal. Diagnostics: [] Therapeutics: [] Impression: [] Definitive disposition and diagnosis as appropriate pending reevaluation and review of above. Course - Vital Signs Last Recorded V/S: Last Vital Signs Temp 98.2 F 07/18/19 12:34 Pulse 94 07/18/19 12:34 Resp 18 07/18/19 12:34 BP 108/73 07/18/19 12:34 Pulse Ox 97 07/18/19 12:34 - Orders/Labs/Meds Orders: Active Orders 24 hr Category Date Time Status Notify Provider Consults [RC] ASDIRECTED Care 07/18/19 12:53 Active Consult to Physician [CONS] Stat Cons 07/18/19 12:53 Active Labs: Laboratory Tests 07/18/19 07/18/19 Range/Units 13:00 13:00 WBC 7.36 (4.0-11.0) K/uL RBC 3.64 L (4.30-5.90) M/uL Hgb 11.0 L (12.0-16.0) g/dL Hct 32.4 L (36.0-46.0) % MCV 89.0 (80.0-98.0) fL MCH 30.2 (27.0-32.0) pg MCHC 34.0 (31.0-37.0) g/dL RDW Std Deviation 41.6 (28.0-62.0) fl RDW Coeff of Carlitos 13 (11.0-15.0) % Plt Count 227 (150-400) K/uL MPV 10.00 (7.40-12.00) fL Neut % (Auto) 57.6 (48.0-80.0) % Lymph % (Auto) 26.0 (16.0-40.0) % Jones % (Auto) 16.2 H (0.0-15.0) % Eos % (Auto) 0.1 (0.0-7.0) % Baso % (Auto) 0.1 (0.0-1.5) % Neut # (Auto) 4.2 (1.4-5.7) K/uL Lymph # (Auto) 1.9 (0.6-2.4) K/uL Jones # (Auto) 1.2 H (0.0-0.8) K/uL Eos # (Auto) 0.0 (0.0-0.7) K/uL Baso # (Auto) 0.0 (0.0-0.1) K/uL Nucleated RBC % 0.0 /100WBC Nucleated RBCs # 0 K/uL Sodium 140 (136-145) mmol/L Potassium 3.3 L (3.5-5.1) mmol/L Chloride 103 (98-107) mmol/L Carbon Dioxide 29.2 (21.0-32.0) mmol/L BUN 11 (7.0-18.0) mg/dL Creatinine 0.5 L (0.6-1.0) mg/dL Est Cr Clr Drug Dosing 156.81 mL/min Estimated GFR (MDRD) > 60.0 ml/min Glucose 91 (74-106) mg/dL Calcium 8.5 (8.5-10.1) mg/dL Total Bilirubin 1.9 H (0.2-1.0) mg/dL AST 41 H (15-37) IU/L ALT 99 H (14-63) IU/L Alkaline Phosphatase 161 H (46-116) U/L Total Protein 7.4 (6.4-8.2) g/dL Albumin 2.9 L (3.4-5.0) g/dL Globulin 4.5 H (2.6-4.0) g/dL Albumin/Globulin Ratio 0.6 L (0.9-1.6) Departure - Departure Time of Disposition: 13:54 Disposition: Home, Self-Care 01 Clinical Impression: Postoperative bleeding from incision - Discharge Information Referrals: PCP,None [Primary Care Provider] - Forms: ED Department Discharge Additional Instructions: The following information is given to patients seen in the emergency department who are being discharged to home. This information is to outline your options for follow-up care. We provide all patients seen in our emergency department with a follow-up referral. The need for follow-up, as well as the timing and circumstances, are variable depending upon the specifics of your emergency department visit. If you don't have a primary care physician on staff, we will provide you with a referral. We always advise you to contact your personal physician following an emergency department visit to inform them of the circumstance of the visit and for follow-up with them and/or the need for any referrals to a consulting specialist. The emergency department will also refer you to a specialist when appropriate. This referral assures that you have the opportunity for follow-up care with a specialist. All of these measure are taken in an effort to provide you with optimal care, which includes your follow-up. Under all circumstances we always encourage you to contact your private physician who remains a resource for coordinating your care. When calling for follow-up care, please make the office aware that this follow-up is from your recent emergency room visit. If for any reason you are refused follow-up, please contact the [facility] Emergency Department at and asked to speak to the emergency department charge nurse. [facility] [address] [place] [address] [address] [facility] - General Surgery, Dr. Bui [facility] [address] [place] [address], [address] [place] [address] 1. Follow-up with Dr. Bui on Saturday as scheduled and as discussed. 2. Return to the ED as needed and as discussed. Sepsis Event Note - Evaluation Sepsis Screening Result: No Definite Risk - Focused Exam Vital Signs: Vital Signs Temp Pulse Resp BP Pulse Ox 07/18/19 12:34 98.2 F 94 18 108/73 97 Date Exam was Performed: 07/18/19 Time Exam was Performed: 13:51 - My Orders Last 24 Hours: My Active Orders 07/18/19 12:53 Notify Provider Consults [RC] ASDIRECTED Consult to Physician [CONS] Stat - Assessment/Plan Last 24 Hours: My Active Orders 07/18/19 12:53 Notify Provider Consults [RC] ASDIRECTED Consult to Physician [CONS] Stat
--- NOTE | 2019-07-18 14:10 | PCM.SN ---
- Free Text/Narrative Note: pt day 3 s/p lap yasmin and hernia repair, no mesh used; co drsg soaked today; remarked drsg was dry till last night, and this morning woke up noted for drainge; denied f/c/n/v, appetite is fair; upon exam, only dried blood noted, cannot express any drainage; blood work fine; dc home, call MD if recurr; would fu this Saturday;
[2019-07-18 14:18] VITALS: BP 115/76; PULSE 96
== END 2019-07-18 14:00 | disposition home or self-care (01) ==
LOC: MW.ED 12:20
DX: L76.22 Postprocedural hemorrhage of skin and subcutaneous tissue following other procedure (principal); F41.9 Anxiety disorder, unspecified; F32.9 Major depressive disorder, single episode, unspecified; Z79.899 Other long term (current) drug therapy; Z90.49 Acquired absence of other specified parts of digestive tract
CPT/HCPCS: 36415; 80053; 85025; 99283; 99284

== ENCOUNTER 2019-12-31 14:44 | Emergency (ER) | payer BC, OTHER ==
--- NOTE | 2019-12-31 15:24 | EDM.PDOC ---
ED HPI GENERAL MEDICAL PROBLEM - General Chief Complaint: Abdominal Pain Stated Complaint: STOMACH PAIN Time Seen by Provider: 12/31/19 15:03 - History of Present Illness INITIAL COMMENTS - FREE TEXT/NARRATIVE: History of present illness: [] Presents with periumbilical pain she has a history of a cholecystectomy and umbilical hernia repair in May with Dr. Bui. Torrey denies any Bowel movements and passing gas without difficulty she says it hurts worse to lie flat it is more visibly apparent when she is standing erect her bellybutton seems to collapse whereas previously it was round. She has been able to eat and drink okay without any difficulties there is been no fever chills she states she went to the surgical office and was referred to the ED. She has prior history of cholecystectomy umbilical hernia repair and 3 C-sections and appendectomy. No other medical problems no allergies Review of systems: As per history of present illness and below otherwise all systems reviewed and negative. Past medical history: As per history of present illness and as reviewed below otherwise noncontributory. Surgical history: As per history of present illness and as reviewed below otherwise noncontributory. Social history: No reported history of drug or alcohol abuse. Family history: As per history of present illness and as reviewed below otherwise noncontributory. Physical exam: HEENT: Atraumatic, normocephalic, pupils reactive, negative for conjunctival pallor or scleral icterus, mucous membranes moist, throat clear, neck supple, nontender, trachea midline. Lungs: Clear to auscultation, breath sounds equal bilaterally, chest nontender. Heart: S1S2, regular, negative for clicks, rubs, or JVD. Abdomen: Soft, nondistended, nontender. Negative for masses or hepatosplenomegaly. Negative for costovertebral tenderness. Pelvis: Stable nontender. Genitourinary: Deferred. Rectal: Deferred. Extremities: Atraumatic, negative for cords or calf pain. Neurovascular unremarkable. Neuro: Awake, alert, oriented. Cranial nerves II through XII unremarkable. Cerebellum unremarkable. Motor and sensory unremarkable throughout. Exam nonfocal. Diagnostics: [] Therapeutics: [] Impression: Reducible umbilical hernia [] Plan: Discharge home Metamucil naproxen [] Definitive disposition and diagnosis as appropriate pending reevaluation and review of above. abdominal Pain Score (Numeric/FACES): 6 - Related Data Allergies Allergy/AdvReac Type Severity Reaction Status Date / Time No Known Allergies Allergy Verified 12/31/19 14:54 Home Meds: Home Meds Acetaminophen [Tylenol Extra Strength] 2 tab PO Q6H PRN 03/16/15 [History] Sertraline HCl 25 mg PO BEDTIME 09/16/18 [History] busPIRone [Buspar] 15 mg PO BEDTIME 09/16/18 [History] Naproxen [Naprosyn] 500 mg PO Q12HR #20 tab 12/31/19 [Rx] Past Medical History - Past Health History Medical/Surgical History: Denies Medical/Surgical History HEENT History: Reports: None Cardiovascular History: Reports: Other (See Below) Other Cardiovascular History: HTN only with , h/o increased cholesterol Respiratory History: Reports: Asthma Other Respiratory History: asthma in the past Gastrointestinal History: Reports: Cholelithiasis Genitourinary History: Reports: None 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: Musculoskeletal History: Reports: Fracture Other Musculoskeletal History: hx fx foot as a child Neurological History: Reports: None Psychiatric History: Reports: Anxiety, Depression Endocrine/Metabolic History: Reports: None Hematologic History: Reports: None Immunologic History: Reports: None Oncologic (Cancer) History: Reports: None Dermatologic History: Reports: None - Infectious Disease History Infectious Disease History: Reports: Chicken Pox - Past Surgical History Head Surgeries/Procedures: Reports: None HEENT Surgical History: Reports: None Cardiovascular Surgical History: Reports: None Respiratory Surgical History: Reports: None GI Surgical History: Reports: Appendectomy, Cholecystectomy, Hernia, Abdominal Female Surgical History: Reports: Section, Tubal Ligation Endocrine Surgical History: Reports: None Neurological Surgical History: Reports: None Musculoskeletal Surgical History: Reports: None Oncologic Surgical History: Reports: None Dermatological Surgical History: Reports: None Social & Family History - Family History Family Medical History: Noncontributory - Tobacco Use Smoking Status *Q: Never Smoker Second Hand Smoke Exposure: No - Caffeine Use Caffeine Use: Reports: Soda - Recreational Drug Use Recreational Drug Use: No ED ROS GENERAL - Review of Systems Review Of Systems: See Below ED EXAM, GENERAL - Physical Exam Exam: See Below Course - Vital Signs Text/Narrative:: I discussed the case with Dr. Bui at 3:20 PM he can see the patient at 11 AM on Saturday. Last Recorded V/S: Last Vital Signs Temp 36.4 C 12/31/19 14:54 Pulse 72 12/31/19 14:54 Resp 17 12/31/19 14:54 BP 126/90 12/31/19 14:54 Pulse Ox 98 12/31/19 14:54 Departure - Departure Time of Disposition: 15:23 Disposition: Home, Self-Care 01 Condition: Good Clinical Impression: Abdominal pain Umbilical hernia Qualifiers: Obstruction and gangrene presence: without obstruction or gangrene Qualified Code(s): K42.9 - Umbilical hernia without obstruction or gangrene - Discharge Information *PRESCRIPTION DRUG MONITORING PROGRAM REVIEWED*: Not Applicable *COPY OF PRESCRIPTION DRUG MONITORING REPORT IN PATIENT ARDEN: Not Applicable Instructions: Hernia, Adult Referrals: PCP,None [Primary Care Provider] - Additional Instructions: The following information is given to patients seen in the emergency department who are being discharged to home. This information is to outline your options for follow-up care. We provide all patients seen in our emergency department with a follow-up referral. The need for follow-up, as well as the timing and circumstances, are variable depending upon the specifics of your emergency department visit. If you don't have a primary care physician on staff, we will provide you with a referral. We always advise you to contact your personal physician following an emergency department visit to inform them of the circumstance of the visit and for follow-up with them and/or the need for any referrals to a consulting specialist. The emergency department will also refer you to a specialist when appropriate. This referral assures that you have the opportunity for follow-up care with a specialist. All of these measure are taken in an effort to provide you with optimal care, which includes your follow-up. Under all circumstances we always encourage you to contact your private physician who remains a resource for coordinating your care. When calling for follow-up care, please make the office aware that this follow-up is from your recent emergency room visit. If for any reason you are refused follow-up, please contact the [facility] Emergency Department at and asked to speak to the emergency department charge nurse. [facility] - General Surgery Professional [address], [address] [place] [address] Dr. Guillen will see you at 11 AM on Saturday if you cannot make this appointment or it does not work for you called him immediately upon discharge to reschedule. Sepsis Event Note (ED) - Evaluation Sepsis Screening Result: No Definite Risk - Focused Exam Vital Signs: Vital Signs Temp Pulse Resp BP Pulse Ox 12/31/19 14:54 36.4 C 72 17 126/90 98
[2019-12-31 15:55] VITALS: BP 122/75; PULSE 75
== END 2019-12-31 15:56 | disposition home or self-care (01) ==
LOC: MW.ED 14:44
DX: K42.9 Umbilical hernia without obstruction or gangrene (principal); F41.9 Anxiety disorder, unspecified; F32.9 Major depressive disorder, single episode, unspecified; Z90.49 Acquired absence of other specified parts of digestive tract; Z98.51 Tubal ligation status; Z98.890 Other specified postprocedural states
CPT/HCPCS: 99282; 99283

== ENCOUNTER 2021-12-03 18:18 | Emergency (ER) | payer BC, OTHER ==
[2021-12-03] MEDS ORDERED: Sodium Chloride 0.9% 2.5 ML Syringe FLUSH PRN (18:25)
[2021-12-03] MEDS ORDERED: Sodium Chloride 0.9% 10 ML Syringe FLUSH PRN (18:25)
[2021-12-03] MEDS ORDERED: Ondansetron 4 MG/2 ML SDV IVPUSH ONE (18:35)
[2021-12-03] MEDS ORDERED: Sodium Chloride 0.9% 1,000 ML IV ONE (18:35)
[2021-12-03] MEDS ORDERED: Morphine 4 MG/ML VIAL IVPUSH ONE (18:35)
[2021-12-03 19:23] LABS: BLOOD UREA NITROGEN,BUN 9 mg/dL (7.0-18.0); CHLORIDE,CL 103 mmol/L (98-107); ESTIMATED GFR > 60.0 ml/min; GLUCOSE RANDOM 89 mg/dL (74-106); SODIUM,NA 138 mmol/L (136-145)
[2021-12-03] MEDS ORDERED: Iopamidol 755 MG/ML 500 ML Multipack Bottle IVPUSH ONE (19:38)
[2021-12-03] MEDS ORDERED: Ondansetron 4 MG Tab.DIS PO ONE (20:13)
[2021-12-03 20:35] VITALS: BP 111/72; PULSE 87
== END 2021-12-03 20:30 | disposition home or self-care (01) ==
LOC: MW.ED 18:18
DX: R10.2 Pelvic and perineal pain (principal); I10 Essential (primary) hypertension; Z86.16 Personal history of COVID-19; Z90.49 Acquired absence of other specified parts of digestive tract
CPT/HCPCS: 36415; 74177; 80053; 81003; 81025; 85025; 96374; 96375; 99284; A9270; J2270; J2405; J3490; J7030; Q9967

== ENCOUNTER 2022-03-02 09:39 | Day surgery (SDC) | payer BC, OTHER ==
[~2022-03-02 09:39] MED LIST changes: +Sodium Chloride 0.9% 10 ML Syringe FLUSH PRN; +Sodium Chloride 0.9% 2.5 ML Syringe FLUSH PRN; +Sodium Chloride 0.9% 20 ML SDV IV PRN
[2022-03-02] MEDS ORDERED: Bupivacaine 0.5% 30 ML SDV ONE (10:39)
[2022-03-02] MEDS ORDERED: Albuterol 0.083% 2.5 MG/3 ML Neb Soln NEB PRN (10:54)
[2022-03-02] MEDS ORDERED: Ondansetron 4 MG/2 ML SDV IVPUSH PRN (10:54)
[2022-03-02] MEDS ORDERED: Naloxone 0.4 MG/ML SDV IVPUSH PRN (10:54)
[2022-03-02] MEDS ORDERED: Metoclopramide 10 MG/2 ML SDV IVPUSH PRN (10:54)
[2022-03-02] MEDS ORDERED: fentaNYL 50 MCG/ML SDV IVPUSH PRN (10:54)
[2022-03-02] MEDS ORDERED: HYDROmorphone 1 MG/ML Syringe IVPUSH PRN (10:54)
[2022-03-02] MEDS ORDERED: Ropivacaine 0.5% 5 MG/ML 30 ML SDV ONE (11:08)
[2022-03-02] MEDS ORDERED: Propofol 200 MG/20 ML SDV ONE ×4 (11:09→13:06)
[2022-03-02] MEDS ORDERED: Ondansetron 4 MG/2 ML SDV ONE (11:09)
[2022-03-02] MEDS ORDERED: fentaNYL 100 MCG/2 ML SDV ONE (11:09)
[2022-03-02] MEDS ORDERED: Lidocaine 2% 5 ML SDV ONE (11:09)
[2022-03-02] MEDS ORDERED: Dexamethasone 4 MG/ML 5 ML MDV ONE (11:09)
[2022-03-02] MEDS ORDERED: Rocuronium Bromide 50 MG/5 ML Syringe ONE (11:09)
[2022-03-02] MEDS ORDERED: Sugammadex Sodium 200 MG/2 ML VIAL ONE (11:09)
[2022-03-02] MEDS ORDERED: ceFAZolin/Dextrose,Iso-Osmotic 2 GM/50 ML Duplex Bag (Premix) ONE (11:32)
[2022-03-02] MEDS ORDERED: Promethazine 25 MG/ML SDV ONE (12:25)
[2022-03-02] MEDS ORDERED: Ketorolac 30 MG/ML SDV ONE (13:08)
[2022-03-02 14:38] VITALS: BP 94/61; PULSE 73
== END 2022-03-02 15:40 | disposition home or self-care (01) ==
LOC: MW.SDS 09:39
PROVIDERS: ATTEND Surgery
DX: K43.2 Incisional hernia without obstruction or gangrene (principal); I10 Essential (primary) hypertension; E78.00 Pure hypercholesterolemia, unspecified; F41.9 Anxiety disorder, unspecified; J45.909 Unspecified asthma, uncomplicated; Z90.49 Acquired absence of other specified parts of digestive tract; Z98.890 Other specified postprocedural states; Z86.16 Personal history of COVID-19
CPT/HCPCS: 49560; 49568; 81025; C1781; J0131; J0690; J1100; J1885; J2405; J2704; J2795; J3010; J3490; J7120; 00752; 64488

== ENCOUNTER 2022-09-15 16:15 | Emergency (ER) | payer BC, OTHER ==
[2022-09-15 17:15] VITALS: BP 127/76; PULSE 89
== END 2022-09-15 18:23 | disposition home or self-care (01) ==
LOC: MW.ED 16:15
DX: R00.2 Palpitations (principal); Z71.1 Person with feared health complaint in whom no diagnosis is made; J45.909 Unspecified asthma, uncomplicated
CPT/HCPCS: 93005; 99284

== ENCOUNTER 2023-02-09 17:33 | Emergency (ER) | payer BC ==
[2023-02-09] MEDS ORDERED: Sodium Chloride 0.9% 1,000 ML IV ONE (19:39)
[2023-02-09 20:07] LABS: BASOPHILS PERCENT AUTO 0.2 % (0.0-1.5); EOSINOPHILS PERCENT AUTO 0.4 % (0.0-7.0); HEMOGLOBIN 12.5 g/dL (12.0-16.0); LYMPHOCYTES ABSOLUTE AUTO 1.3 K/uL (0.6-2.4); LYMPHOCYTES PERCENT AUTO 24.8 % (16.0-40.0); MEAN CORPUSCULAR HEMOGLOBIN 30.6 pg (27.0-32.0); MEAN CORPUSCULAR HGB CONC 33.8 g/dL (31.0-37.0); MEAN CORPUSCULAR VOLUME 90.7 fL (80.0-98.0); MONOCYTES ABSOLUTE AUTO 0.6 K/uL (0.0-0.8); MONOCYTES PERCENT AUTO 11.3 % (0.0-15.0); NEUTROPHILS ABSOLUTE AUTO 3.4 K/uL (1.4-5.7); NEUTROPHILS PERCENT AUTO 63.3 % (48.0-80.0); NRBC ABSOLUTE 0 K/uL; PLATELET COUNT,PLT 283 K/uL (150-400); RED BLOOD CELL COUNT 4.08 M/uL (4.30-5.90)
[2023-02-09 20:28] LABS: A/G RATIO 0.9 (0.9-1.6); ALBUMIN 3.6 g/dL (3.4-5.0); BILIRUBIN TOTAL 0.9 mg/dL (0.2-1.0); CALCIUM 8.6 mg/dL (8.5-10.1); CARBON DIOXIDE,CO2 28.1 mmol/L (21.0-32.0); CREATININE 0.7 mg/dL (0.6-1.0); EST CRCL DRUG DOSING (CG) 109.01 mL/min; POTASSIUM,K 3.9 mmol/L (3.5-5.1); PROTEIN TOTAL,TP 7.5 g/dL (6.4-8.2)
[2023-02-09 20:51] LABS: BILIRUBIN,URINE NEGATIVE (NEGATIVE); COLOR,URINE YELLOW; GLUCOSE,URINE NEGATIVE (NEGATIVE); KETONES,URINE NEGATIVE (NEGATIVE); LEUKOCYTE ESTERASE,URINE NEGATIVE (NEGATIVE); NITRITE,URINE NEGATIVE (NEGATIVE); OCCULT BLOOD,URINE NEGATIVE (NEGATIVE); PROTEIN,URINE NEGATIVE (NEGATIVE)
[2023-02-09 20:52] LABS: APPEARANCE,URINE CLEAR
[2023-02-09] MEDS ORDERED: Meclizine 25 MG Tab PO ONE (21:09)
[2023-02-09 21:54] VITALS: BP 126/74; PULSE 70
== END 2023-02-09 22:08 | disposition home or self-care (01) ==
LOC: MW.ED 17:33
DX: R42 Dizziness and giddiness (principal); I10 Essential (primary) hypertension; J45.909 Unspecified asthma, uncomplicated; Z86.16 Personal history of COVID-19; Z20.822 Contact with and (suspected) exposure to COVID-19
CPT/HCPCS: 36415; 80053; 81003; 82947; 84703; 85025; 87635; 93005; 96360; 99284; A9270; J7030; 93010; 99283; U0002

== ENCOUNTER 2023-07-16 12:12 | Emergency (ER) | payer BC, OTHER ==
[2023-07-16] MEDS ORDERED: Sodium Chloride 0.9% 1,000 ML IV ONE (12:46)
[2023-07-16 13:05] LABS: BASOPHILS ABSOLUTE AUTO 0.02 K/uL (0.00-0.20); BASOPHILS PERCENT AUTO 0.4 % (0.0-1.0); EOSINOPHILS ABSOLUTE AUTO 0.04 K/uL (0.00-0.45); EOSINOPHILS PERCENT AUTO 0.7 % (0.0-6.0); HEMOGLOBIN 11.7 g/dL (12.0-16.0); LYMPHOCYTES ABSOLUTE AUTO 1.81 K/uL (1.00-4.80); LYMPHOCYTES PERCENT AUTO 32.7 % (24.0-44.0); MEAN CORPUSCULAR HEMOGLOBIN 31.4 pg (28.0-32.0); MEAN CORPUSCULAR HGB CONC 34.4 g/dL (32.0-36.0); MEAN CORPUSCULAR VOLUME 91.2 fL (83.0-99.0); MEAN PLATELET VOLUME 9.6 fL (9.4-12.3); MONOCYTES ABSOLUTE AUTO 0.61 K/uL (0.00-0.80); NEUTROPHILS ABSOLUTE AUTO 3.06 K/uL (1.80-7.70); NEUTROPHILS PERCENT AUTO 55.2 % (41.0-71.0); PLATELET COUNT,PLT 254 K/uL (150-400); RED BLOOD CELL COUNT 3.73 M/uL (4.10-5.30); WHITE BLOOD CELL COUNT,WBC 5.54 K/uL (3.9-11.3)
[2023-07-16 13:44] LABS: A/G RATIO 0.9 (0.9-1.6); ALANINE AMINOTRANSFERASE,ALT 67 IU/L (14-63); ALBUMIN 3.5 g/dL (3.4-5.0); ALKALINE PHOSPHATASE 102 U/L (46-116); ASPARTATE AMNIOTRANSFERASE,AST 26 IU/L (15-37); BILIRUBIN TOTAL 1.3 mg/dL (0.2-1.0); BLOOD UREA NITROGEN,BUN 16 mg/dL (7.0-18.0); CALCIUM 8.5 mg/dL (8.5-10.1); CARBON DIOXIDE,CO2 29.6 mmol/L (21.0-32.0); CHLORIDE,CL 102 mmol/L (98-107); CREATININE 0.8 mg/dL (0.6-1.0); EST CRCL DRUG DOSING (CG) 94.51 mL/min; GLUCOSE RANDOM 90 mg/dL (74-106); MAGNESIUM 1.8 mg/dL (1.8-2.4); POTASSIUM,K 3.3 mmol/L (3.5-5.1); PROTEIN TOTAL,TP 7.2 g/dL (6.4-8.2); SODIUM,NA 142 mmol/L (136-145); TSH ULTRASENSITIVE 0.88 uIU/mL (0.36-3.74)
[2023-07-16 13:49] LABS: ESTIMATED GFR 100 mL/min (>60)
[2023-07-16 13:58] LABS: D-DIMER QUANTITATIVE 0.39 mg/L FEU (0.00-0.50); INR 0.99 (0.86-1.11); PTT,PARTIAL THROMBOPLSTIN TIME 32.6 SEC (23.9-30.7)
[2023-07-16 14:20] LABS: CORONAVIRUS COVID-19 NAA NEGATIVE (NEGATIVE); INFLUENZA A NAA NEGATIVE (NEGATIVE); INFLUENZA B NAA NEGATIVE (NEGATIVE)
[2023-07-16 14:39] VITALS: BP 118/86; PULSE 78
== END 2023-07-16 14:39 | disposition home or self-care (01) ==
LOC: MW.ED 12:12
DX: R07.9 Chest pain, unspecified (principal); R42 Dizziness and giddiness
CPT/HCPCS: 0240U; 36415; 71045; 80053; 83735; 84443; 84484; 84703; 85025; 85379; 85610; 85730; 93005; 93246; 96360; 99285; J7030; 93010; 99282

== ENCOUNTER 2024-04-05 18:12 | Emergency (ER) | payer BC, OTHER ==
[2024-04-05 18:36] LABS: BASOPHILS ABSOLUTE AUTO 0.03 K/uL (0.00-0.20); BASOPHILS PERCENT AUTO 0.6 % (0.0-1.0); EOSINOPHILS ABSOLUTE AUTO 0.03 K/uL (0.00-0.45); EOSINOPHILS PERCENT AUTO 0.6 % (0.0-6.0); HEMATOCRIT 34.8 % (37.0-47.0); HEMOGLOBIN 11.9 g/dL (12.0-16.0); LYMPHOCYTES ABSOLUTE AUTO 2.43 K/uL (1.00-4.80); LYMPHOCYTES PERCENT AUTO 48.5 % (24.0-44.0); MEAN CORPUSCULAR HEMOGLOBIN 30.7 pg (28.0-32.0); MEAN CORPUSCULAR HGB CONC 34.2 g/dL (32.0-36.0); MEAN CORPUSCULAR VOLUME 89.9 fL (83.0-99.0); MEAN PLATELET VOLUME 10.2 fL (9.4-12.3); MONOCYTES ABSOLUTE AUTO 0.54 K/uL (0.00-0.80); MONOCYTES PERCENT AUTO 10.8 % (0.0-8.0); NEUTROPHILS ABSOLUTE AUTO 1.98 K/uL (1.80-7.70); NEUTROPHILS PERCENT AUTO 39.5 % (41.0-71.0); PLATELET COUNT,PLT 245 K/uL (150-400); RED BLOOD CELL COUNT 3.87 M/uL (4.10-5.30); WHITE BLOOD CELL COUNT,WBC 5.01 K/uL (3.9-11.3)
[2024-04-05] MEDS: Aspirin 81 MG Tab.Chew PO STA (18:42)
[2024-04-05] MEDS: Ondansetron 4 MG/2 ML SDV IVPUSH STA (18:43)
[2024-04-05] MEDS: Sodium Chloride 0.9% 2.5 ML Syringe FLUSH PRN (18:43)
[2024-04-05] MEDS: Sodium Chloride 0.9% 10 ML Syringe FLUSH PRN (18:44)
[2024-04-05 18:58] LABS: A/G RATIO 1.1 (0.9-1.6); ALBUMIN 3.9 g/dL (3.4-5.0); BILIRUBIN TOTAL 0.9 mg/dL (0.2-1.0); CALCIUM 9.1 mg/dL (8.5-10.1); CARBON DIOXIDE,CO2 27.8 mmol/L (21.0-32.0); CREATININE 0.7 mg/dL (0.6-1.0); EST CRCL DRUG DOSING (CG) 108.01 mL/min; POTASSIUM,K 3.6 mmol/L (3.5-5.1); PROTEIN TOTAL,TP 7.3 g/dL (6.4-8.2)
[2024-04-05 19:03] LABS: MAGNESIUM 1.8 mg/dL (1.8-2.4)
[2024-04-05 19:13] LABS: CORONAVIRUS COVID-19 NAA NEGATIVE (NEGATIVE); INFLUENZA A NAA NEGATIVE (NEGATIVE); INFLUENZA B NAA NEGATIVE (NEGATIVE)
[2024-04-05] MEDS: Cyclobenzaprine 10 MG Tab PO STA (19:53)
[2024-04-05 19:55] VITALS: BP 107/70; PULSE 72
== END 2024-04-05 20:10 | disposition home or self-care (01) ==
LOC: MW.ED 18:12
DX: S46.812A Strain of other muscles, fascia and tendons at shoulder and upper arm level, left arm, initial encounter (principal); M62.838 Other muscle spasm; R42 Dizziness and giddiness; R07.9 Chest pain, unspecified; Z86.16 Personal history of COVID-19; Z79.899 Other long term (current) drug therapy; Z75.8 Other problems related to medical facilities and other health care; X58.XXXA Exposure to other specified factors, initial encounter
CPT/HCPCS: 0240U; 36415; 71045; 80053; 83690; 83735; 84484; 84703; 85025; 93005; 96374; 99285; A9270; J2405; J3490

== ENCOUNTER 2024-09-14 18:16 | Emergency (ER) | payer BC, OTHER ==
[2024-09-14 19:32] LABS: BASOPHILS ABSOLUTE AUTO 0.02 K/uL (0.00-0.20); BASOPHILS PERCENT AUTO 0.3 % (0.0-1.0); EOSINOPHILS ABSOLUTE AUTO 0.03 K/uL (0.00-0.45); EOSINOPHILS PERCENT AUTO 0.5 % (0.0-6.0); HEMATOCRIT 37.6 % (37.0-47.0); HEMOGLOBIN 12.7 g/dL (12.0-16.0); IMMATURE GRAN ABSOLUTE AUTO 0.02 K/uL (0.00-0.05); IMMATURE GRAN PERCENT AUTO 0.3 % (0.0-0.4); LYMPHOCYTES ABSOLUTE AUTO 1.71 K/uL (1.00-4.80); LYMPHOCYTES PERCENT AUTO 28.6 % (24.0-44.0); MEAN CORPUSCULAR HEMOGLOBIN 30.6 pg (28.0-32.0); MEAN CORPUSCULAR HGB CONC 33.8 g/dL (32.0-36.0); MEAN CORPUSCULAR VOLUME 90.6 fL (83.0-99.0); MEAN PLATELET VOLUME 9.8 fL (9.4-12.3); MONOCYTES ABSOLUTE AUTO 0.57 K/uL (0.00-0.80); MONOCYTES PERCENT AUTO 9.5 % (0.0-8.0); NEUTROPHILS ABSOLUTE AUTO 3.63 K/uL (1.80-7.70); NEUTROPHILS PERCENT AUTO 60.8 % (41.0-71.0); PLATELET COUNT,PLT 264 K/uL (150-400); RED BLOOD CELL COUNT 4.15 M/uL (4.10-5.30); WHITE BLOOD CELL COUNT,WBC 5.98 K/uL (3.9-11.3)
[2024-09-14 19:39] LABS: APPEARANCE,URINE CLEAR; BILIRUBIN,URINE NEGATIVE (NEGATIVE); COLOR,URINE YELLOW; GLUCOSE,URINE NEGATIVE (NEGATIVE); KETONES,URINE NEGATIVE (NEGATIVE); LEUKOCYTE ESTERASE,URINE NEGATIVE (NEGATIVE); NITRITE,URINE NEGATIVE (NEGATIVE); OCCULT BLOOD,URINE NEGATIVE (NEGATIVE); PH,URINE 5.5 (5.0-8.0); PROTEIN,URINE NEGATIVE (NEGATIVE); UROBILINOGEN,URINE 0.2 EU/dL (<2.0)
[2024-09-14 19:59] LABS: ALBUMIN 3.8 g/dL (3.4-5.0); BILIRUBIN TOTAL 1.7 mg/dL (0.2-1.0); CALCIUM 8.8 mg/dL (8.5-10.1); CARBON DIOXIDE,CO2 27.8 mmol/L (21.0-32.0); CREATININE 0.7 mg/dL (0.6-1.0); EST CRCL DRUG DOSING (CG) 107.01 mL/min; MAGNESIUM 1.9 mg/dL (1.8-2.4); PROTEIN TOTAL,TP 7.7 g/dL (6.4-8.2); TSH ULTRASENSITIVE 0.9 uIU/mL (0.36-3.74)
[2024-09-14 20:57] VITALS: BP 114/78; PULSE 92
== END 2024-09-14 20:57 | disposition home or self-care (01) ==
LOC: MW.ED 18:16
DX: R00.2 Palpitations (principal); Z90.49 Acquired absence of other specified parts of digestive tract; Z75.8 Other problems related to medical facilities and other health care
CPT/HCPCS: 36415; 71045; 71045-26; 80053; 81003; 81025; 83735; 84443; 85025; 87428-QW; 93005; 93010; 99284; 99285

== ENCOUNTER 2024-09-16 20:17 | Emergency (ER) | payer BC, OTHER ==
[2024-09-16 21:02] LABS: APPEARANCE,URINE CLEAR; COLOR,URINE YELLOW; GLUCOSE,URINE NEGATIVE (NEGATIVE); KETONES,URINE >=80 mg/dL (NEGATIVE); LEUKOCYTE ESTERASE,URINE NEGATIVE (NEGATIVE); NITRITE,URINE NEGATIVE (NEGATIVE); OCCULT BLOOD,URINE TRACE-INTACT (NEGATIVE); PROTEIN,URINE NEGATIVE (NEGATIVE); UROBILINOGEN,URINE 0.2 EU/dL (<2.0)
[2024-09-16 21:10] LABS: BILIRUBIN,URINE SMALL (NEGATIVE)
[2024-09-16 21:11] LABS: AMPHETAMINES SCREEN, URINE NEGATIVE (CUTOFF=500); BARBITURATE SCREEN,URINE NEGATIVE (CUTOFF=200); BENZODIAZEPINES SCREEN,URINE NEGATIVE (CUTOFF=150); BUPRENORPHINE SCREEN,URINE NEGATIVE (CUTOFF=10); METHADONE SCREEN, URINE NEGATIVE (CUTOFF=200); METHAMPHETAMINES SCREEN, URINE NEGATIVE (CUTOFF=500); OXYCODONE SCREEN,URINE NEGATIVE (CUT0FF=100); PCP SCREEN,URINE NEGATIVE (CUTOFF=25); THC SCREEN,URINE 20 NG/ML NEGATIVE (CUTOFF=50)
[2024-09-16 21:12] LABS: EOSINOPHILS ABSOLUTE AUTO 0.03 K/uL (0.00-0.45); EOSINOPHILS PERCENT AUTO 0.6 % (0.0-6.0); HEMATOCRIT 37.8 % (37.0-47.0); IMMATURE GRAN ABSOLUTE AUTO 0.01 K/uL (0.00-0.05); IMMATURE GRAN PERCENT AUTO 0.2 % (0.0-0.4); LYMPHOCYTES ABSOLUTE AUTO 0.71 K/uL (1.00-4.80); LYMPHOCYTES PERCENT AUTO 14.4 % (24.0-44.0); MEAN CORPUSCULAR HEMOGLOBIN 30.8 pg (28.0-32.0); MEAN CORPUSCULAR HGB CONC 34.4 g/dL (32.0-36.0); MEAN CORPUSCULAR VOLUME 89.6 fL (83.0-99.0); MEAN PLATELET VOLUME 9.9 fL (9.4-12.3); MONOCYTES ABSOLUTE AUTO 0.12 K/uL (0.00-0.80); MONOCYTES PERCENT AUTO 2.4 % (0.0-8.0); NEUTROPHILS ABSOLUTE AUTO 4.05 K/uL (1.80-7.70); NEUTROPHILS PERCENT AUTO 82.4 % (41.0-71.0); PLATELET COUNT,PLT 271 K/uL (150-400); RED BLOOD CELL COUNT 4.22 M/uL (4.10-5.30); WHITE BLOOD CELL COUNT,WBC 4.92 K/uL (3.9-11.3)
[2024-09-16 21:23] LABS: A/G RATIO 0.9 (0.9-1.6); ALBUMIN 3.9 g/dL (3.4-5.0); BILIRUBIN TOTAL 1.8 mg/dL (0.2-1.0); CALCIUM 9.7 mg/dL (8.5-10.1); CARBON DIOXIDE,CO2 25.2 mmol/L (21.0-32.0); CREATININE 0.7 mg/dL (0.6-1.0); EST CRCL DRUG DOSING (CG) 107.01 mL/min; MAGNESIUM 2.1 mg/dL (1.8-2.4); POTASSIUM,K 3.4 mmol/L (3.5-5.1); PROTEIN TOTAL,TP 8.2 g/dL (6.4-8.2)
[2024-09-16 21:45] LABS: BACTERIA,URINE RARE (NEGATIVE); EPITHELIAL CELLS,URINE RARE (NONE-FEW); MUCUS,URINE LIGHT (NONE-MOD); RBC,URINE 0-1 (0-2/HPF); WBC,URINE 0-1 (0-5/HPF)
[2024-09-16 22:12] LABS: TSH ULTRASENSITIVE 0.53 uIU/mL (0.36-3.74)
[2024-09-16] MEDS: Sodium Chloride 0.9% 1,000 ML IV STA (22:37)
[2024-09-16] MEDS: droPERidol 2.5 MG/ML SDV IVPUSH ONE (23:40)
[2024-09-17 02:00] VITALS: BP 119/77; PULSE 72
== END 2024-09-17 01:00 | disposition home or self-care (01) ==
LOC: MW.ED 20:17
DX: R00.2 Palpitations (principal); Z90.49 Acquired absence of other specified parts of digestive tract; Z75.8 Other problems related to medical facilities and other health care
CPT/HCPCS: 36415; 80053; 80305; 81001; 83735; 84443; 84703; 85025; 85379; 93005; 96361; 96374; 99285-25; J1790; J7030

== ENCOUNTER 2024-09-19 22:59 | Emergency (ER) | payer BC, OTHER ==
[2024-09-19] MEDS ORDERED: Sodium Chloride 0.9% 20 ML SDV IV PRN (23:17)
[2024-09-19] MEDS ORDERED: Sodium Chloride 0.9% 2.5 ML Syringe FLUSH PRN (23:17)
[2024-09-19] MEDS ORDERED: Sodium Chloride 0.9% 10 ML Syringe FLUSH PRN (23:17)
[2024-09-19 23:34] LABS: BASOPHILS ABSOLUTE AUTO 0.03 K/uL (0.00-0.20); BASOPHILS PERCENT AUTO 0.5 % (0.0-1.0); EOSINOPHILS ABSOLUTE AUTO 0.03 K/uL (0.00-0.45); EOSINOPHILS PERCENT AUTO 0.5 % (0.0-6.0); HEMATOCRIT 38.3 % (37.0-47.0); IMMATURE GRAN ABSOLUTE AUTO 0.01 K/uL (0.00-0.05); IMMATURE GRAN PERCENT AUTO 0.2 % (0.0-0.4); LYMPHOCYTES ABSOLUTE AUTO 2.16 K/uL (1.00-4.80); MEAN CORPUSCULAR HEMOGLOBIN 30.2 pg (28.0-32.0); MEAN CORPUSCULAR HGB CONC 33.9 g/dL (32.0-36.0); MEAN CORPUSCULAR VOLUME 89.1 fL (83.0-99.0); MONOCYTES ABSOLUTE AUTO 0.67 K/uL (0.00-0.80); MONOCYTES PERCENT AUTO 11.2 % (0.0-8.0); NEUTROPHILS PERCENT AUTO 51.6 % (41.0-71.0); PLATELET COUNT,PLT 273 K/uL (150-400)
[2024-09-19] MEDS: Sodium Chloride 0.9% 1,000 ML IV ONE (23:36)
[2024-09-20 00:05] LABS: BILIRUBIN,URINE NEGATIVE (NEGATIVE); COLOR,URINE YELLOW; GLUCOSE,URINE NEGATIVE (NEGATIVE); KETONES,URINE >=80 mg/dL (NEGATIVE); LEUKOCYTE ESTERASE,URINE NEGATIVE (NEGATIVE); NITRITE,URINE NEGATIVE (NEGATIVE); OCCULT BLOOD,URINE MODERATE (NEGATIVE); PH,URINE 6.5 (5.0-8.0); PROTEIN,URINE 30 mg/dL (NEGATIVE); UROBILINOGEN,URINE 0.2 EU/dL (<2.0)
[2024-09-20 00:07] LABS: BILIRUBIN TOTAL 1.5 mg/dL (0.2-1.0); CALCIUM 9.4 mg/dL (8.5-10.1); CARBON DIOXIDE,CO2 22.7 mmol/L (21.0-32.0); CREATININE 0.8 mg/dL (0.6-1.0); EST CRCL DRUG DOSING (CG) 93.63 mL/min; POTASSIUM,K 3.2 mmol/L (3.5-5.1); TSH ULTRASENSITIVE 0.86 uIU/mL (0.36-3.74)
[2024-09-20 00:08] LABS: APPEARANCE,URINE HAZY
[2024-09-20 00:13] LABS: AMPHETAMINES SCREEN, URINE NEGATIVE (CUTOFF=500); BACTERIA,URINE FEW (NEGATIVE); BARBITURATE SCREEN,URINE NEGATIVE (CUTOFF=200); BENZODIAZEPINES SCREEN,URINE NEGATIVE (CUTOFF=150); BUPRENORPHINE SCREEN,URINE NEGATIVE (CUTOFF=10); METHADONE SCREEN, URINE NEGATIVE (CUTOFF=200); METHAMPHETAMINES SCREEN, URINE NEGATIVE (CUTOFF=500); MUCUS,URINE MODERATE (NONE-MOD); OXYCODONE SCREEN,URINE NEGATIVE (CUT0FF=100); PCP SCREEN,URINE NEGATIVE (CUTOFF=25); SQUAMOUS EPITHELIAL CELLS,UR FEW; THC SCREEN,URINE 20 NG/ML NEGATIVE (CUTOFF=50); WBC,URINE 0-2 (0-5/HPF)
[2024-09-20] MEDS: Potassium Chloride 10% 20 MEQ/15 ML Soln 15 ML UD Cup PO ONE (00:34)
[2024-09-20 01:31] VITALS: BP 128/87; PULSE 71
== END 2024-09-20 01:31 | disposition home or self-care (01) ==
LOC: MW.ED 22:59
DX: R07.89 Other chest pain (principal); R00.2 Palpitations; Z90.49 Acquired absence of other specified parts of digestive tract
CPT/HCPCS: 36415; 71045; 80053; 80305; 81001; 81025; 84443; 84484; 85025; 85379; 93005; 96360; 96361; 99285; A9270; J7030; 93010; 99284

== ENCOUNTER 2024-09-30 21:56 | Emergency (ER) | payer BC, OTHER ==
[2024-09-30 22:07] LABS: BASOPHILS ABSOLUTE AUTO 0.04 K/uL (0.00-0.20); BASOPHILS PERCENT AUTO 0.6 % (0.0-1.0); EOSINOPHILS ABSOLUTE AUTO 0.02 K/uL (0.00-0.45); EOSINOPHILS PERCENT AUTO 0.3 % (0.0-6.0); HEMATOCRIT 36.9 % (37.0-47.0); HEMOGLOBIN 12.8 g/dL (12.0-16.0); IMMATURE GRAN ABSOLUTE AUTO 0.01 K/uL (0.00-0.05); IMMATURE GRAN PERCENT AUTO 0.2 % (0.0-0.4); LYMPHOCYTES ABSOLUTE AUTO 3.04 K/uL (1.00-4.80); LYMPHOCYTES PERCENT AUTO 46.8 % (24.0-44.0); MEAN CORPUSCULAR HEMOGLOBIN 30.8 pg (28.0-32.0); MEAN CORPUSCULAR HGB CONC 34.7 g/dL (32.0-36.0); MEAN CORPUSCULAR VOLUME 88.9 fL (83.0-99.0); MEAN PLATELET VOLUME 9.9 fL (9.4-12.3); MONOCYTES ABSOLUTE AUTO 0.68 K/uL (0.00-0.80); MONOCYTES PERCENT AUTO 10.5 % (0.0-8.0); NEUTROPHILS PERCENT AUTO 41.6 % (41.0-71.0); PLATELET COUNT,PLT 295 K/uL (150-400); RED BLOOD CELL COUNT 4.15 M/uL (4.10-5.30); WHITE BLOOD CELL COUNT,WBC 6.49 K/uL (3.9-11.3)
[2024-09-30 22:41] LABS: A/G RATIO 1.1 (0.9-1.6); ALANINE AMINOTRANSFERASE,ALT 57 IU/L (14-63); ALKALINE PHOSPHATASE 90 U/L (46-116); ASPARTATE AMNIOTRANSFERASE,AST 27 IU/L (15-37); BILIRUBIN TOTAL 0.9 mg/dL (0.2-1.0); BLOOD UREA NITROGEN,BUN 8 mg/dL (7.0-18.0); CALCIUM 8.8 mg/dL (8.5-10.1); CHLORIDE,CL 105 mmol/L (98-107); CREATININE 0.7 mg/dL (0.6-1.0); GLUCOSE RANDOM 109 mg/dL (74-106); LIPASE 52 U/L (16-77); MAGNESIUM 1.9 mg/dL (1.8-2.4); POTASSIUM,K 2.9 mmol/L (3.5-5.1); PRO B-TYPE NATRIUR PEPT,BNPPRO 25 pg/mL (0-125); PROTEIN TOTAL,TP 7.7 g/dL (6.4-8.2); SODIUM,NA 142 mmol/L (136-145)
[2024-09-30 22:51] LABS: ESTIMATED GFR 117 mL/min (>60)
[2024-09-30 22:53] LABS: CARBON DIOXIDE,CO2 26.6 mmol/L (21.0-32.0)
[2024-09-30] MEDS: Sodium Chloride 0.9% 1,000 ML IV ONE (22:56)
[2024-09-30] MEDS: Iopamidol 755 MG/ML 500 ML Multipack Bottle IVPUSH ONE (23:54)
[2024-10-01] MEDS: Potassium Chloride 20 MEQ Tab.ER PO ONE (00:19)
[2024-10-01 01:09] VITALS: BP 124/84; PULSE 70
== END 2024-10-01 01:09 | disposition home or self-care (01) ==
LOC: MW.ED 21:56
DX: E87.6 Hypokalemia (principal); R07.9 Chest pain, unspecified; Z88.8 Allergy status to other drugs, medicaments and biological substances; Z79.899 Other long term (current) drug therapy
CPT/HCPCS: 36415; 71045; 71275; 80053; 83690; 83735; 83880; 84484; 84703; 85025; 85379; 93005; 96360; 96361; 99285; A9270; J7030; Q9967; 93010; 99284

== ENCOUNTER 2024-10-07 01:12 | Emergency (ER) | payer BC, OTHER ==
[2024-10-07 01:31] VITALS: BP 120/83; PULSE 80
[2024-10-07] MEDS ORDERED: NALOXONE IVPUSH ONE (01:43)
[2024-10-07] MEDS ORDERED: Sodium Chloride 0.9% 2.5 ML Syringe FLUSH PRN (01:55)
[2024-10-07] MEDS ORDERED: Sodium Chloride 0.9% 10 ML Syringe FLUSH PRN (01:55)
[2024-10-07] MEDS ORDERED: Sodium Chloride 0.9% 20 ML SDV IV PRN (01:55)
[2024-10-07 02:22] LABS: BASOPHILS ABSOLUTE AUTO 0.03 K/uL (0.00-0.20); BASOPHILS PERCENT AUTO 0.5 % (0.0-1.0); EOSINOPHILS ABSOLUTE AUTO 0.03 K/uL (0.00-0.45); EOSINOPHILS PERCENT AUTO 0.5 % (0.0-6.0); HEMATOCRIT 35.6 % (37.0-47.0); IMMATURE GRAN ABSOLUTE AUTO 0.01 K/uL (0.00-0.05); IMMATURE GRAN PERCENT AUTO 0.2 % (0.0-0.4); LYMPHOCYTES ABSOLUTE AUTO 2.48 K/uL (1.00-4.80); LYMPHOCYTES PERCENT AUTO 42.5 % (24.0-44.0); MEAN CORPUSCULAR HEMOGLOBIN 30.6 pg (28.0-32.0); MEAN CORPUSCULAR HGB CONC 33.7 g/dL (32.0-36.0); MEAN CORPUSCULAR VOLUME 90.8 fL (83.0-99.0); MEAN PLATELET VOLUME 9.8 fL (9.4-12.3); MONOCYTES ABSOLUTE AUTO 0.77 K/uL (0.00-0.80); MONOCYTES PERCENT AUTO 13.2 % (0.0-8.0); NEUTROPHILS ABSOLUTE AUTO 2.51 K/uL (1.80-7.70); NEUTROPHILS PERCENT AUTO 43.1 % (41.0-71.0); PLATELET COUNT,PLT 242 K/uL (150-400); RED BLOOD CELL COUNT 3.92 M/uL (4.10-5.30); WHITE BLOOD CELL COUNT,WBC 5.83 K/uL (3.9-11.3)
[2024-10-07 02:43] LABS: A/G RATIO 1.1 (0.9-1.6); ALBUMIN 3.6 g/dL (3.4-5.0); BILIRUBIN TOTAL 0.9 mg/dL (0.2-1.0); CALCIUM 8.8 mg/dL (8.5-10.1); CARBON DIOXIDE,CO2 27.7 mmol/L (21.0-32.0); CREATININE 0.6 mg/dL (0.6-1.0); EST CRCL DRUG DOSING (CG) 115.16 mL/min; POTASSIUM,K 3.5 mmol/L (3.5-5.1)
[2024-10-07] MEDS: Iopamidol 755 MG/ML 500 ML Multipack Bottle IVPUSH ONE (04:26)
[2024-10-07] MEDS: Sodium Chloride 0.9% 500 ML IV STA (06:06)
[2024-10-07] MEDS: Sodium Chloride 0.9% 500 ML IV ONE (06:06)
== END 2024-10-07 06:27 | disposition home or self-care (01) ==
LOC: MW.ED 01:12
DX: S73.102A Unspecified sprain of left hip, initial encounter (principal); M79.605 Pain in left leg; Z90.49 Acquired absence of other specified parts of digestive tract; Z88.8 Allergy status to other drugs, medicaments and biological substances; Z79.899 Other long term (current) drug therapy; X58.XXXA Exposure to other specified factors, initial encounter
CPT/HCPCS: 36415; 71275; 80053; 83735; 84703; 85025; 85379; 93005; 93970; 99284; J7040; Q9967; 99283

== ENCOUNTER 2024-10-11 22:37 | Emergency (ER) | payer BC, OTHER ==
[2024-10-11] MEDS ORDERED: Sodium Chloride 0.9% 2.5 ML Syringe FLUSH PRN (22:48)
[2024-10-11] MEDS ORDERED: Sodium Chloride 0.9% 10 ML Syringe FLUSH PRN (22:48)
[2024-10-11] MEDS: Sodium Chloride 0.9% 1,000 ML IV SCH (23:03)
[2024-10-11] MEDS: Ketorolac 30 MG/ML SDV IVPUSH ONE (23:04)
[2024-10-11] MEDS: LORazepam 2 MG/ML SDV IVPUSH ONE (23:05)
[2024-10-11 23:10] LABS: BASOPHILS ABSOLUTE AUTO 0.03 K/uL (0.00-0.20); BASOPHILS PERCENT AUTO 0.5 % (0.0-1.0); EOSINOPHILS ABSOLUTE AUTO 0.02 K/uL (0.00-0.45); EOSINOPHILS PERCENT AUTO 0.3 % (0.0-6.0); HEMATOCRIT 34.8 % (37.0-47.0); HEMOGLOBIN 12.1 g/dL (12.0-16.0); IMMATURE GRAN ABSOLUTE AUTO 0.02 K/uL (0.00-0.05); IMMATURE GRAN PERCENT AUTO 0.3 % (0.0-0.4); LYMPHOCYTES ABSOLUTE AUTO 3.13 K/uL (1.00-4.80); LYMPHOCYTES PERCENT AUTO 53.9 % (24.0-44.0); MEAN CORPUSCULAR HEMOGLOBIN 31.1 pg (28.0-32.0); MEAN CORPUSCULAR HGB CONC 34.8 g/dL (32.0-36.0); MEAN CORPUSCULAR VOLUME 89.5 fL (83.0-99.0); MEAN PLATELET VOLUME 10.1 fL (9.4-12.3); MONOCYTES ABSOLUTE AUTO 0.78 K/uL (0.00-0.80); MONOCYTES PERCENT AUTO 13.4 % (0.0-8.0); NEUTROPHILS ABSOLUTE AUTO 1.83 K/uL (1.80-7.70); NEUTROPHILS PERCENT AUTO 31.6 % (41.0-71.0); PLATELET COUNT,PLT 238 K/uL (150-400); RED BLOOD CELL COUNT 3.89 M/uL (4.10-5.30); WHITE BLOOD CELL COUNT,WBC 5.81 K/uL (3.9-11.3)
[2024-10-11 23:41] LABS: CALCIUM 9.4 mg/dL (8.5-10.1); CARBON DIOXIDE,CO2 28.5 mmol/L (21.0-32.0); CREATININE 0.8 mg/dL (0.6-1.0); EST CRCL DRUG DOSING (CG) 93.63 mL/min; POTASSIUM,K 3.9 mmol/L (3.5-5.1)
[2024-10-12 00:13] VITALS: BP 128/83; PULSE 63
== END 2024-10-12 00:13 | disposition home or self-care (01) ==
LOC: MW.ED 22:37
DX: R07.89 Other chest pain (principal); F41.9 Anxiety disorder, unspecified; Z90.49 Acquired absence of other specified parts of digestive tract; Z88.8 Allergy status to other drugs, medicaments and biological substances
CPT/HCPCS: 36415; 80048; 84484; 85025; 93005; 96361; 96374; 99284; J1885; J7030; 99283